=== PATIENT | female | born 1970 | race Caucasian/White ===

== ENCOUNTER 2019-09-27 20:05 | Emergency (ER) | payer MEDICARE, SELFPAY ==
--- NOTE | 2019-09-27 19:59 | ED.GENADUL_ITS ---
Discharge Plan Disposition Patient Disposition: HOME Condition: Good Discharge Details Chief Complaint: Vascular Clinical Impression: Contusion, Calf pain Primary Care Provider: Terrence Che ED Provider: Guero Blackwood Home Meds and New Rx's Prescriptions: New Xarelto 15 mg tablet 15 mg PO BID 7 Days Qty: 14 RF: 0 No Action atenolol 100 MG tablet 100 mg PO DAILY RF: 0 metoprolol succinate 50 mg Tablet Extended Release 24 Hr 50 mg PO BID RF: 0 levothyroxine 40 mcg/mL Solution 40 mcg PO DAILY RF: 0 lisinopril 40 MG tablet 40 mg PO DAILY RF: 0 naproxen [Naprosyn] 375 MG tablet 375 mg PO BID PRN (Reason: Pain) Qty: 28 RF: 0 Discharge Instructions Instructions: Contusion in Adults (ED), Leg Pain (ED) Additional Instructions: At this time I see no evidence of significant DVT, however this is not a definitive study and you do require a definitive ultrasound for full evaluation. I suspect your symptoms are secondary to being hit by your dog's tail and subsequent bleeding and bruising from that. At this time there is no evidence of abscess or infection. Please take a daily multivitamin, vitamin C supplement, and decrease your alcohol intake. Use warm compresses to the area to door liner helper in healing. Follow-up closely with your primary care doctor Dr. Che. We have discussed the risks and benefits of the blood thinning medication. There are significant risks to this medication, however as we discussed I will provide a prescription if you do change your mind. If you notice any worsening of your symptoms, or any new symptoms such as vomiting, diarrhea, fever, chills, shortness of breath, chest pain, numbness, weakness, or fainting , please return immediately to the emergency department for reevaluation. Please follow up with your primary care provider as soon as possible for reassessment and reevaluation. As always, it was a pleasure participating in your medical care today. Referrals: Terrence Che [Primary Care Provider] - Medical Decision Making This is a very pleasant 49-year-old female with no significant past medical history except for hypertension and some chronic alcoholism, who presents today for evaluation of bruising over the medial aspect of her left lower extremity. She believes that she was hit by her dog's tail when he was wa lking vigorously 2 to 3 days ago, and since then has had a mild bruise. Exam demonstrates no warmth, swelling, tenderness, or signs of abscess or other abnormality. Limited bedside ultrasound shows no evidence of DVT on evaluation of the vessels however this is performed at bedside by myself and not by standard digital assistant. Capillary refill is normal, sensation present throughout, no evidence of decrease in sensation or neurovascular compromise. Signs and symptoms at this time appear clinically consistent with a bruise/contusion, however due to the slight concern that there may have not potentially been a traumatic component the differential does include but is notably less likely for DVT. Although my ultrasound showed no abnormalities it is certainly limited, and I do recommend formal ultrasonography. Patient agrees with this and we will schedule outpatient ultrasound. We did discuss the risks and benefits of blood thinners, the patient does drink regularly, and sometimes does get imbalance and fall. With a long discussion about these risks and benefits at this time the patient would like to hold off on the blood thinners. We will give her a prescription if she does decide to change her mind, however we had a clear discussion about the risks and benefits of this. Recommended warm compresses, multivitamin, vitamin C, and close follow-up with her PCP. Discussed red flags which to return. I have extensively reviewed the treatment plan and discharge instructions with the patient. I have addressed all patient concerns at this time. The patient was made aware of what symptoms to monitor for that would warrant a return to the emergency department. Discussed the plan with the patient, they demonstrate verbal understanding and agreement with our assessment and plan at this time. HPI General Date/Time Provider Initiated Documentation: 09/27/19 20:26 . HPI Narrative: This is a 49-year-old female with a past medical history of hypertension, reactive airway disease/COPD, who presents today via EMS for evaluation of leg discoloration. The patient states that a day or 2 ago she thinks she may have been hit on the medial aspect of her left lower extremity by her dog hard tail when it was wagging vigorously. However she is not completely certain that this did occur. Since then she has noticed mild to moderate bruise that is grown in size on the medial aspect of her left lower extremity. She describes mild tenderness there, but denies any warmth, fever, chills, calf pain, pain with ambulation. Denies PE risk factors such as recent long car rides, immobilization, recent surgery, prior history of DVT or PE, family history of PE or DVT, morbid obesity, exogenous estrogen and smoking, hemoptysis, history of cancer. She denies any other complaints at this time. She denies any concerning red flags of chest pain or shortness of breath. Related Data Home Medications Medication Instructions Recorded Confirmed atenolol 100 mg PO DAILY 11/23/14 09/27/19 lisinopril 40 mg PO DAILY 01/31/18 09/27/19 naproxen [Naprosyn] 375 mg PO BID PRN #28 tab 01/31/18 levothyroxine 40 mcg PO DAILY 09/27/19 09/27/19 metoprolol succinate 50 mg PO BID 09/27/19 09/27/19 rivaroxaban [Xarelto] 15 mg PO BID 7 Days #14 tab 09/27/19 Previous Rx's Medication Instructions Recorded naproxen [Naprosyn] 375 mg PO BID PRN #28 tab 01/31/18 rivaroxaban [Xarelto] 15 mg PO BID 7 Days #14 tab 09/27/19 Allergies Allergy/AdvReac Type Severity Reaction Status Date / Time erythromycin base Allergy Intermediate Skin Rash Unverified 09/27/19 20:11 Review of Systems All systems reviewed & are unremarkable except as noted in HPI and below PFSH Social History Smoking/Tobacco Use Status: Current every day Tobacco Type: cigarettes Alcohol Intake: current Alcohol Intake frequency: 3 or more drinks per day Drug use: Never Substance use type: does not use Details: pt states she has been drinking heavily today/tonight. pt has etoh on breath, speech is clear, pt a/ox4 Do you feel safe at home: Yes Do you feel safe in your relationship?: Yes Exam Narrative Exam Narrative: 1.Const: Well-nourished, Well-developed, appearing stated age 2.Eyes: PERRL, no conjunctival injection, and symmetrical lids. 3.ENT: Atraumatic external nose and ears. Moist MM. Neck: Symmetric, trachea midline, No thyromegaly. 4.CVS: +S1/S2, No murmurs or gallops. Peripheral pulses 2+ and equal in all extremities. Brisk capillary refill in all extremities. 5.RESP: Unlabored respiratory effort. Clear to auscultation bilaterally. No wheezes rales or rhonchi 6.GI: Soft, Nontender/Nondistended, No hepatosplenomegaly. No guarding or rebound. 7.MSK: Normocephalic, Extremities w/o deformity or ttp No cyanosis or clubbing, Normal movement of all extremities. No calf tenderness. Capillary refill is 2 seconds in all toes, dorsalis pedis and posterior tibial pulses are present and +1 to +2 bilaterally. 8.Skin: Warm, Dry. Notable bruises present over the medial aspect of the left calf, no tenderness or fluctuance, bedside limited ultrasound shows no evidence of clot, or vascular abnormality. Good color flow. No fluctuance or abscess. No fluid collection. No evidence of significant trauma. 9.Neuro: machine quilt stuffer II-XII grossly intact. Sensation grossly intact, no focal neurologic deficits. 10.Psych: (AAO) x3. Appropriate mood and affect
[2019-09-27 20:06] VITALS: BP 137/79; PULSE 91; RESP 18; TEMP 36.5; O2SAT 98
== END 2019-09-27 20:50 | disposition home or self-care (01) ==
PROVIDERS: Emergency Provider Student in an Organized Health Care Education/Training Program; PCP Family Medicine
DX: S80.12XA Contusion of left lower leg, initial encounter (principal); W54.8XXA Other contact with dog, initial encounter; M79.662 Pain in left lower leg; F17.210 Nicotine dependence, cigarettes, uncomplicated; I10 Essential (primary) hypertension; J44.9 Chronic obstructive pulmonary disease, unspecified
CPT/HCPCS: 99283

== ENCOUNTER 2019-09-29 02:20 | Outpatient (CLI) | payer MEDICARE, SELFPAY ==
--- NOTE | 2019-09-29 13:00 | DI.US_ITS ---
EXAM: US LOWER EXTREMITY VENOUS LT US LOWER EXTREMITY VENOUS LT CLINICAL HISTORY: PAIN LT CALF, ? DVT. PAIN LT CALF, ? DVT TECHNIQUE: Lower extremity venous ultrasound performed using grayscale, color-flow, and spectral Dop pler analysis. COMPARISON: No exams were available for comparison FINDINGS: The common femoral, femoral and popliteal veins demonstrate normal compressibility, augmentation, and color Doppler. The posterior tibial veins are patent. The saphenous vein appears free of thrombus. No Rose's cyst or hematoma is seen. IMPRESSION: No evidence of DVT.
== END 2019-09-29 02:40 ==
PROVIDERS: PCP Family Medicine; Visit Provider Student in an Organized Health Care Education/Training Program
DX: M79.662 Pain in left lower leg (principal)
CPT/HCPCS: 93971

== ENCOUNTER 2019-09-29 13:38 | Emergency (ER) | payer MEDICARE, SELFPAY ==
[2019-09-29 13:46] VITALS: BP 161/78; PULSE 90; RESP 18; TEMP 36.9; O2SAT 98
--- NOTE | 2019-09-29 14:33 | ED.GENADUL_ITS ---
Discharge Plan Disposition Patient Disposition: HOME Condition: Good Discharge Details Chief Complaint: Recheck Clinical Impression: Follow-up exam Primary Care Provider: Terrence Che ED Provider: Marylu Huggins Home Meds and New Rx's Prescriptions: No Action metoprolol succinate 50 mg Tablet Extended Release 24 Hr 50 mg PO BID RF: 0 levothyroxine 40 mcg/mL Solution 40 mcg PO DAILY RF: 0 Xarelto 15 mg tablet 15 mg PO BID 7 Days Qty: 14 RF: 0 albuterol sulfate [ProAir HFA] 90 mcg/actuation Hfa Aerosol Inhaler INHALATION PRN PRNRF: 0 Symbicort 160-4.5 mcg/actuation Hfa Aerosol Inhaler INHALATION BID RF: 0 lisinopril 40 MG tablet 40 mg PO DAILY RF: 0 naproxen [Naprosyn] 375 MG tablet 375 mg PO BID PRN (Reason: Pain) Qty: 28 RF: 0 Discharge Instructions Additional Instructions: Observe for any redness, swelling or discomfort. Elevate leg if needed. Your ultrasound evaluation today is negative for DVT. Return for any worsening or concerns sooner if needed. Follow-up with primary care doctor. Medical Decision Making Patient's ultrasound today does not reveal any evidence of acute DVT or superficial clot. No associated hematoma. Smoking cessation discussed at length due to vascular risk. Patient reports understanding. Patient encouraged close follow-up with primary care doctor. The patient was stable and requested discharge. Prior to discharge, my usual and customary return precautions were reviewed with the patient - this included follow-up instructions and reasons to return to the Emergency Department if conditions worsens, does not improve as expected, or other new concerns arise. HPI General Date/Time Provider Initiated Documentation: 09/29/19 14:23 . HPI Narrative: This is a 49-year-old patient who presents to the ER for a follow-up. Patient is following up on an ultrasound that was performed today after her evaluation in the emergency room over the weekend for complaints of distal leg bruising. Ultrasound unavailable at the time of her initial evaluation and was ordered as an outpatient for today. Patient has no new complaints of pain. Patient has no complaints of distal leg pain primarily an area of skin discoloration noted to the medial aspect of the distal left leg specifically was for concern of hematoma. Patient denies any chest pain, difficulty no shortness of breath or wheezing. Has no other concerns or complaints at this time. Patient is only seeking her ultrasound results today Related Data Home Medications Medication Instructions Recorded Confirmed lisinopril 40 mg PO DAILY 01/31/18 09/29/19 naproxen [Naprosyn] 375 mg PO BID PRN #28 tab 01/31/18 09/29/19 levothyroxine 40 mcg PO DAILY 09/27/19 09/29/19 metoprolol succinate 50 mg PO BID 09/27/19 09/29/19 rivaroxaban [Xarelto] 15 mg PO BID 7 Days #14 tab 09/27/19 09/29/19 albuterol sulfate [ProAir HFA] INHALATION PRN PRN 09/29/19 budesonide-formoterol [Symbicort] INHALATION BID 09/29/19 Previous Rx's Medication Instructions Recorded naproxen [Naprosyn] 375 mg PO BID PRN #28 tab 01/31/18 rivaroxaban [Xarelto] 15 mg PO BID 7 Days #14 tab 09/27/19 Allergies Allergy/AdvReac Type Severity Reaction Status Date / Time erythromycin base Allergy Intermediate Skin Rash Unverified 09/27/19 20:11 General Stated Complaint: Recheck BARTOLOME: 4 Review of Systems All systems reviewed & are unremarkable except as noted in HPI and below Cardiovascular Cardiovascular: Denies dyspnea Respiratory Respiratory: Denies dyspnea Integumentary/Breasts Skin/Breast: Reports unusual bruising and Denies wounds [facility] Social History Smoking/Tobacco Use Status: Current every day Tobacco Type: cigarettes Alcohol Intake: current Alcohol Intake frequency: 3 or more drinks per day Drug use: Never Substance use type: does not use Details: pt states she has been drinking heavily today/tonight. pt has etoh on breath, speech is clear, pt a/ox4 Do you feel safe at home: Yes Do you feel safe in your relationship?: Yes Exam Narrative Exam Narrative: CONST: Healthy appearing patient, in no acute distress. Well hydrated. Alert and alert. MUSCULOSKELETAL: Using a crutch for ambulation due to right hip pain. Assisted gait. FROM of all extremities. Patient with an area of purple discoloration noted to the medial aspect of the distal left lower leg. No open wounds. Patient has pulses intact distally. Noted chronic vascular changes. SKIN: Normal. Dry. No rashes. NEURO: Alert and awake. Speech clear. PSYCH: Normal affect. Cooperative. Course Vital Signs Vital signs: Vital Signs Temperature 36.9 C 09/29/19 13:46 Pulse 90 09/29/19 13:46 Respiratory Rate 18 09/29/19 13:46 Blood Pressure 161/78 H 09/29/19 13:46 Pulse Oximetry 98 09/29/19 13:46 Temperature 36.9 C 09/29/19 13:46 Temperature Source Temporal Artery Scan 09/29/19 13:46 Pulse 90 09/29/19 13:46 Respiratory Rate 18 09/29/19 13:46 Respiratory Effort 09/29/19 13:51 Blood Pressure 161/78 H 09/29/19 13:46 Blood Pressure Position Supine 09/29/19 13:46 Pulse Oximetry 98 09/29/19 13:46 Oxygen Delivery Method Room Air 09/29/19 13:46 Oxygen Flow Rate 0 09/29/19 13:46 Pain Level 0 09/29/19 13:46
== END 2019-09-29 14:33 | disposition home or self-care (01) ==
PROVIDERS: Emergency Provider Physician Assistant; PCP Family Medicine
DX: S80.12XA Contusion of left lower leg, initial encounter (principal); X58.XXXA Exposure to other specified factors, initial encounter; F17.210 Nicotine dependence, cigarettes, uncomplicated

== ENCOUNTER 2020-08-26 02:17 | Outpatient (CLI) | payer MEDICARE, SELFPAY ==
--- NOTE | 2020-08-26 13:00 | DI.DEXA_ITS ---
EXAM: XR DEXA BONE DENSITY W/WO HELEN CLINICAL HISTORY: OSTEOPENIA WITH HIGH FX RISK,M85.861,HIP FX TECHNIQUE: [employer] Horizon C densitometer. COMPARISON: DX DEXA BONE DENSITY WITH HELEN from 11/12/2014 FINDINGS: The lateral tin recovery worker view the spine shows slight anterior wedging of the T7 and T11 vertebral bodies. The bone mineral density measurements of the lumbar spine correspond to a total T-score of -3.2, in t he osteoporotic range. The bone mineral density of the spine has decreased 12.4 percent compared wit h 2014. The hip was not analyzed. Bone mineral density measurements of the left forearm correspond to a T-score of the distal 3rd of 0. 6, in the normal range. The bone density has decreased 7.5 percent when compared with 2014. IMPRESSION: Osteoporosis of the lumbar spine. Normal bone mineral density of the forearm. Bone density measurem ents show significant decrease when compared with the previous exam. Question of mild thoracic compr ession fractures.
== END 2020-08-26 02:37 ==
PROVIDERS: PCP Family Medicine; Visit Provider Family Medicine
DX: M85.861 Other specified disorders of bone density and structure, right lower leg (principal); M81.8 Other osteoporosis without current pathological fracture
CPT/HCPCS: 77080

== ENCOUNTER 2022-04-10 09:46 | Day surgery (SDC) | payer MEDICARE, SELFPAY ==
--- NOTE | 2022-04-10 07:54 | ANES.PREOP_ITS ---
General Info Date of Service Date Performed: 04/10/22 Height: 5 ft 7 in Weight: 58.06 kg Body Mass Index (BMI): 20.0 Surgical Procedure: Operation Date: 04/10/22 12:40 Proposed Procedure Side Surgeon p Cataract Extraction with IOL Implant Right Óscar Corral MD Meds Allergies and Home Medications Allergies Allergy/AdvReac Type Severity Reaction Status Date / Time erythromycin base Allergy Intermediate Skin Rash Verified 04/10/22 10:19 Home Medication Medication Instructions Recorded lisinopril 40 mg tablet 40 mg PO DAILY 01/31/18 naproxen 375 mg tablet (Naprosyn) 375 mg PO BID PRN Pain #28 tabs 01/31/18 metoprolol succinate 50 mg 50 mg PO BID 09/27/19 tablet,extended release 24 hr albuterol sulfate 2.5 mg/3 mL 2.5 ml inhalation Q3H PRN 04/06/22 (0.083 %) solution for nebulization atorvastatin 20 mg tablet 1 tab PO DAILY 04/06/22 budesonide-formoterol HFA 160 2 puff inhalation BID 04/06/22 mcg-4.5 mcg/actuation aerosol inhaler fluticasone propionate 50 2 spray intranasal DAILY 04/06/22 mcg/actuation nasal spray,suspension ketoconazole 2 % topical cream 1 applic topical BID 04/06/22 levothyroxine 75 mcg tablet 1 tab PO DAILY 04/06/22 methocarbamol 500 mg tablet 2 tab PO QID 04/06/22 oxycodone 5 mg tablet 1 tab PO Q4H PRN 04/06/22 urea 20 % topical cream 1 applic topical HS 04/06/22 Current Visit Medications: Current Medications Generic Name Dose Route Start Last Admin Trade Name Freq PRN Reason Stop Dose Admin Acetaminophen 1,000 mg 04/10/22 06:00 Acetaminophen 500 Mg Tab PO 04/10/22 16:00 Q4H PRN PRN Miscellaneous Medication 0 ml 04/10/22 06:00 Prednisolone 1%, Moxifloxacin 0.5%, Nepafenac 0.1% 5ml Btl OD 04/10/22 16:00 DIRECTED [facility] Miscellaneous Medication 0 ml 04/10/22 06:00 Tropicam./Phenyleph. (1/2.5%) 5 Ml Btl OD 04/10/22 16:00 DIRECTED [facility] Tetracaine HCl 0 ml 04/10/22 06:00 Tetracaine 0.5% 4 Ml Btl OD 04/10/22 16:00 DIRECTED [facility] Medical History Medical History (Updated 04/10/22 @ 10:21 by Óscar Corral MD) Acrocyanosis Acute ankle pain Cerebral arteriovenous malformation Closed intertrochanteric fracture of femur Congenital arteriovenous malformation COPD (chronic obstructive pulmonary disease) Eczema Essential hypertension Hx of falling Hypo-osmolality and hyponatremia Hypothyroidism Osteoarthritis Osteopenia Osteoporosis Pain, joint, shoulder, right Pharyngeal candidiasis PVD (peripheral vascular disease) Right foot drop Right hemiparesis utilizes a walker to ambulate Right knee pain Seasonal allergic rhinitis Stasis dermatitis Tinea corporis Tobacco user Venous stasis ulcer Surgical History Surgical History History of hip replacement Hx of biopsy Tobacco Smoking/Tobacco Use Status: Current every day Tobacco Type: cigarettes Alcohol Alcohol Intake: current Alcohol intake frequency: 3 or more drinks per day Substance Use Substance use: Occasionally Substance use type: marijuana Vital Signs and Lab Results Vital Signs Most Recent Vital Signs in EMR: Temp Pulse Resp BP Pulse Ox 36.0 C L 84 18 105/80 100 04/10/22 10:05 04/10/22 10:05 04/10/22 10:05 04/10/22 10:05 04/10/22 10:05 Lab Results Blood Type / Crossmatch: No Data to Display Complete Blood Count: No Data to Display Complete Metabolic Panel: No Data to Display Liver Function Panel: No Data to Display Coagulation Panel: No Data to Display Cardiac Panel: No Data to Display Arterial Blood Gas: No Data to Display Venous Blood Gas: No Data to Display Pancreas Panel: No Data to Display Thyroid Panel: No Data to Display Infectious Disease: No Data to Display Blood Cultures: No Data to Display Toxicology Panel: No Data to Display Panel: No Data to Display Anesthesia Assessment and Plan Anesthesia History Personal History: No History of Anesthesia Complications Family History: No Family History of Anesthesia Complications Exercise Tolerance Exercise Tolerance: Metabolic Equivalents>4 Pertinent Negatives Pertinent Negatives: No Symptoms of GERD, No Major Pulmonary Symptoms or Complaints and No History of CVA/TIA Cardiac & Pulmonary Exam Cardiac Exam: Normal S1/S2 Heart Sounds Pulmonary Exam: Clear Bilateral Breath Sounds Implantable Cardiac Device Does patient have a Pacemaker or an ICD?: No Airway Exam Known Difficult Airway: No Mallampati Class: 2 Mouth Opening: Normal (> 3cm) Thyromental Distance: Greater than 3 cm Neck Range of Motion: Full ROM Neck Circumference: Normal Teeth Condition: Normal Dentition ASA Classification ASA Score: ASA 3 Emergency Case?: No NPO Status NPO Status: NPO Clears >2 hours, Solids >8 hours Status Status: Not Relevant due to Medical History Anesthesia Plan Resuscitation Status: Full Code Anesthesia Technique: MAC Anesthesia Airway Planned: Natural Airway Monitors Used: Standard Monitors
[2022-04-10 10:05] VITALS: BP 105/80; PULSE 84; RESP 18; TEMP 36; O2SAT 100
[2022-04-10] MEDS: Tropicam./Phenyleph. (1/2.5%) 5 ML BTL OD ×3 (10:21→10:37)
[2022-04-10] MEDS: Tetracaine 0.5% 4 ML BTL OD (11:05)
[2022-04-10] MEDS: Lidocaine 2% Jelly 6 ML SYR (11:05)
[2022-04-10] MEDS: Trypan Blue 0.06% 0.5 ML SYR (11:17)
[2022-04-10] MEDS: Balanced Salt Soln.-PLUS 500 ML BAG (11:18)
[2022-04-10] MEDS: Duovisc Viscoelastic System EACH 1 EACH (11:18)
[2022-04-10] MEDS: Povidone-Iodine Ophth 30 ML BTL (11:19)
[2022-04-10 11:35] VITALS: BP 109/76; PULSE 80; RESP 18; TEMP 36.2; O2SAT 99
--- NOTE | 2022-04-10 11:37 | W.PM.DSUDISC ---
Discharge Plan Disposition Patient Disposition: HOME Condition: Good Discharge Details Attending Provider: Óscar Corarl Primary Care Provider: Terrence Che Home Meds and New Rx's Prescriptions: No Action metoprolol succinate 50 mg Tablet Extended Release 24 Hr 50 mg PO BID lisinopril 40 MG tablet 40 mg PO DAILY naproxen [Naprosyn] 375 MG tablet 375 mg PO BID PRN (Reason: Pain) Qty: 28 0RF methocarbamol 500 mg tablet 2 tab PO QID Label Comments: TAKE TWO TABLETS BY MOUTH FOUR TIMES A DAY FOR 14 DAYS NEEDED FOR SPASM atorvastatin 20 mg tablet 1 tab PO DAILY Label Comments: TAKE ONE TABLET BY MOUTH EVERY DAY albuterol sulfate 2.5 mg /3 mL (0.083 %) solution for nebulization 2.5 ml inhalation Q3H PRN Label Comments: INHALE CONTENTS OF 1 VIAL IN NEBULIZER EVERY 3 HOURS urea 20 % cream 1 applic TOPICAL HS Label Comments: APPLY TO AFFECTED AREA AT BEDTIME levothyroxine 75 mcg tablet 1 tab PO DAILY Label Comments: TAKE ONE TABLET BY MOUTH EVERY DAY ketoconazole 2 % cream 1 applic TOPICAL BID Label Comments: APPLY TOPICALLY TO THE AFFECTED AREA TWICE DAILY FOR 2 WEEKS NEEDED fluticasone propionate 50 mcg/actuation [place],Suspension 2 spray INTRANASAL DAILY oxycodone 5 mg tablet 1 tab PO Q4H PRN Label Comments: TAKE 1 TABLET BY MOUTH EVERY 4 HOURS FOR 7 DAYS DIRECTED budesonide-formoterol 160-4.5 mcg/actuation HFA aerosol inhaler 2 puff inhalation BID Label Comments: INHALE TWO PUFFS BY MOUTH TWICE A DAY DIRECTED Discharge Instructions Stand Alone Forms: Post-op Topical Cataract, Mahesh Poole (DSU) Discharge Orders Discharge Orders: Discharge Order (Routine); Ordered 04/10/22 Ordered By: Óscar Corral DS: Diagnosis Discharge Diagnosis (1) Posterior subcapsular age-related cataract, right eye: Status: Resolved (2) Nuclear sclerotic cataract of right eye: Status: Resolved
--- NOTE | 2022-04-10 11:38 | W.PM.OP ---
Date of service: 04/10/22 Time of Service: 10:38 Operative Note Operative Note DATE OF PROCEDURE: 04/10/22 PRE-OP DIAGNOSIS: Dense nuclear/posterior subcapsular cataract, right eye Poor red reflex, right eye secondary to cataract POST-OP DIAGNOSIS: same PROCEDURE: Cataract extraction using phacoemulsification with intraocular lens implantation, right eye, using capsular staining with Vision Blue SURGEON: Óscar Corral ANESTHESIA TYPE: Local By Surgeon and MAC Refer to Anesthesia Record PATHOLOGY: none sent COMPLICATIONS: None Patient was transported to: same day Patient's condition: stable Implants: Asael and Asael / [employer] Optics Tecnis [id number] Indications: Progressive visual loss due to cataract, right eye Procedure Description: CATARACT SURGERY OPERATIVE REPORT PREOPERATIVE DIAGNOSIS: 1. Nuclear/posterior subcapsular cataract, right eye 2. Poor red reflex secondary to #1 POSTOPERATIVE DIAGNOSIS: Same OPERATION: 1. Cataract extraction using phacoemulsification with posterior chamber intraocular lens implant, right eye. 2. Capsular staining with Vision Blue IOL: IOL Boiler Tenders Supervisor/Model: Asael & Asael / UMER Tecnis [id number] IOL Power: + 24.5 diopters IOL Serial Number: [id number] Optic Diameter: 6.0mm Haptic/Overall Diameter: 13.0mm PHACO INFO: [employer] Vision System with OZil and Active Fluidics Cumulative Dispersed Energy (CDE): 9.65 seconds SURGEON: Óscar Corral MD, FELICE ANESTHESIA: Monitored Anesthesia Care (MAC), with local sub-tenon's anesthetic infiltration COMPLICATIONS: None SPECIMENS: None INDICATIONS FOR PROCEDURE: The patient is a 52-year-old lady with history of diminished visual acuity in her right eye secondary to the development of significant nuclear/posterior subcapsular cataract. The option of cataract surgery was offered to the patient and she wished to proceed. PROCEDURE: The correct surgical eye was identified and marked as the right eye and the pupil was dilated in the preoperative area using mydriatics and cycloplegics. The dilated pupil size was 4.5 mm. Oral sedation was administered in the form of an Imprimis MKO Melt (midazolam 3mg/ketamine 25mg/ondansetron 2mg). The patient was brought to the operating room where cardiopulmonary monitoring was instituted and surgical time-out was performed, confirming the correct operative eye and IOL power. Topical anesthesia was administered and ophthalmic povidone-iodine 5% was instilled into the conjunctival fornices. Lidocaine gel was applied to the cornea and the delaney-ocular area was prepped with Betadine 10% solution and draped in the usual sterile fashion for intraocular surgery, including an aperture drape. A Tegaderm transparent film dressing was cut in half and used to cover the lashes and lid margins. Care was taken to sequester the lashes and lid margins under the Tegaderm dressing. A lid speculum was placed between the lids of the operative eye and the [employer] LuxOR Revalia operating microscope was maneuvered into position. Christina scissors were then used to make a conjunctival buttonhole approximately 6mm posterior to the limbus in the inferonasal quadrant. Blunt dissection was carried out to expose bare sclera, and a blunt-tipped sub-tenon?s anesthesia cannula was introduced and passed posteriorly along the globe where non-preserved plain lidocaine was injected into posterior sub-Tenon?s space. A sideport knife was used to make a paracentesis port inferotemporally. Intraocular phenylephrine/lidocaine was injected into the anterior chamber. Air was injected into the anterior chamber, followed by Vision Blue, which was painted over the anterior capsule and then irrigated out with BSS. The anterior chamber was filled with viscoelastic. Some Visco dilation was achieved, enlarging the pupil to 5.5 mm. 2.4 mm keratome knife was used to create a 2-plane near clear corneal tunnel extending approximately 2 mm into clear cornea superior temporally.. A flap was raised on the anterior capsule and capsulorhexis forceps were used to complete a continuous curvilinear capsulorhexis of 5.0 mm. Balanced salt solution was then used to perform cortical cleaving hydrodissection and nuclear hydrodelineation until the lens could be freely rotated within the capsular bag. The lens nucleus was then disassembled and removed within the capsular bag and iris plane using phacoemulsification. Residual cortical material was removed using the I/A handpiece. The posterior capsule was carefully polished to remove as much residual lens epithelial cells as safely possible. The capsular bag was then inflated and the anterior chamber deepened with viscoelastic. The lens implant described above was inserted into the capsular bag using the UMER [place] Injector. A Kuglen hook was used to dial the IOL into position. Residual viscoelastic was then removed first from posterior to the IOL, then from the anterior chamber using the I/A handpiece. The lens implant was noted to center nicely within the capsular bag. The incisions were stromally hydrated, and the anterior chamber was reformed using BSS. Then 0.5cc of moxifloxacin 1.0mg/ml were injected into the capsular bag and anterior chamber. The incisions were checked with a Weck spear and found to be secure. Several drops of ophthalmic povidone-iodine 5% were then applied to the eye followed by two drops of Imprimis combination prednisolone/moxifloxacin/nepafenac solution. The drapes were removed and a clear plastic protective eye shield was placed over the eye. The patient was then returned to Same Day Surgery in stable condition.
[2022-04-10 12:03] VITALS: BP 104/63; PULSE 82; RESP 16; TEMP 36.7; O2SAT 97
--- NOTE | 2022-04-10 12:41 | W.ANESPOSTOP ---
Postoperative Evaluation Date, Time and Location Date Performed: 04/10/22 Time Performed: 12:42 Patient Location: Day Surgery Unit Vital Signs Most Recent Imported Vital Signs: Most Recent Vital Signs Temp Pulse Resp BP Pulse Ox 36.7 C 82 16 104/63 97 04/10/22 12:03 04/10/22 12:03 04/10/22 12:03 04/10/22 12:03 04/10/22 12:03 Pain Score Most Recent Pain Score: Most Recent Pain Score Pain Level 0 04/10/22 12:03 Assessment Mental Status: Awake (Alert & Oriented to Patient Baseline) Airway and Respiratory Function: Patent airway with normal (patient baseline) respiratory exam Cardiovascular Function: Hemodynamically Stable Hydration Status: Adequately Hydrated Nausea & Vomiting: No Nausea or Vomiting Pain: Pt. Denies Any Pain Peripheral Nerve Block: Other (Local by Dr. Corral) Postoperative Comments:: Patient seen earlier today in [facility].
== END 2022-04-10 12:14 | disposition home or self-care (01) ==
PROVIDERS: PCP Family Medicine; Visit Provider Ophthalmology
PROC: (CPT 66984; principal; 2022-04-10 12:30)
DX: H25.041 Posterior subcapsular polar age-related cataract, right eye (principal); J44.9 Chronic obstructive pulmonary disease, unspecified; I10 Essential (primary) hypertension; F17.210 Nicotine dependence, cigarettes, uncomplicated
CPT/HCPCS: 66984; V2632

== ENCOUNTER 2022-05-01 09:37 | Day surgery (SDC) | payer MEDICARE, SELFPAY ==
--- NOTE | 2022-05-01 08:52 | W.PREOPHP ---
Assessment and Plan Assessment and plan (1) Nuclear sclerotic cataract of left eye: Status: Chronic Assessment and plan: Assessment: Visually significant cataract of the left eye. Plan: Cataract extraction with lens implantation of the left eye (2) Posterior subcapsular age-related cataract of left eye: Status: Chronic Assessment and plan: ssment: Visually significant cataract of the left eye. Plan: Cataract extraction with lens implantation of the left eye History of Present Illness History of Present Illness Chief Complaint: Progressive decreased vision, left eye Narrative: The patient is a 52-year-old lady with history of significant bilateral cataracts, right eye worse than left. She underwent cataract surgery on 04/10/2022. Postoperatively she had fairly significant corneal edema for 2 weeks which has since resolved. She now presents for cataract surgery to remove a dense cataract in her left eye. PFSH All Active Problems Posterior subcapsular age-related cataract of left eye (Chronic) Nuclear sclerotic cataract of left eye (Chronic) Medical History Acrocyanosis Acute ankle pain Cerebral arteriovenous malformation Closed intertrochanteric fracture of femur Congenital arteriovenous malformation COPD (chronic obstructive pulmonary disease) Eczema Essential hypertension Hx of falling Hypo-osmolality and hyponatremia Hypothyroidism Osteoarthritis Osteopenia Osteoporosis Pain, joint, shoulder, right Pharyngeal candidiasis PVD (peripheral vascular disease) Right foot drop Right hemiparesis utilizes a walker to ambulate Right knee pain Seasonal allergic rhinitis Stasis dermatitis Tinea corporis Tobacco user Venous stasis ulcer Surgical History History of hip replacement Hx of biopsy Social History Smoking/Tobacco Use Status: Current every day Tobacco Type: cigarettes Smoking risk assessment performed?: Yes Alcohol Intake: current Alcohol Intake frequency: 3 or more drinks per day Drug use: Occasionally Substance use type: marijuana Details: had vape pen yesterday 05/01/22 Do you feel safe at home: Yes Do you feel safe in your relationship?: Yes Meds Allergies and Home Medications Allergies Allergy/AdvReac Type Severity Reaction Status Date / Time erythromycin base Allergy Intermediate Skin Rash Verified 05/01/22 10:05 Home Medications Medication Instructions Recorded Confirmed Type lisinopril 40 mg tablet 40 mg PO DAILY 01/31/18 05/01/22 History naproxen 375 mg tablet (Naprosyn) 375 mg PO BID PRN Pain #28 tabs 01/31/18 04/28/22 Rx metoprolol succinate 50 mg 50 mg PO BID 09/27/19 05/01/22 History tablet,extended release 24 hr albuterol sulfate 2.5 mg/3 mL 2.5 ml inhalation Q3H PRN 04/06/22 04/28/22 History (0.083 %) solution for nebulization atorvastatin 20 mg tablet 1 tab PO DAILY 04/06/22 05/01/22 History budesonide-formoterol HFA 160 2 puff inhalation BID 04/06/22 05/01/22 History mcg-4.5 mcg/actuation aerosol inhaler fluticasone propionate 50 2 spray intranasal DAILY 04/06/22 04/28/22 History mcg/actuation nasal spray,suspension ketoconazole 2 % topical cream 1 applic topical BID 04/06/22 04/28/22 History levothyroxine 75 mcg tablet 1 tab PO DAILY 04/06/22 05/01/22 History methocarbamol 500 mg tablet 2 tab PO QID 04/06/22 04/28/22 History oxycodone 5 mg tablet 1 tab PO Q4H PRN 04/06/22 04/28/22 History urea 20 % topical cream 1 applic topical HS 04/06/22 04/28/22 History Exam Eyes Other: Uncorrected visual acuity is 20/20 in the right eye. Corrected visual acuity is 20/30 in the left eye. Intraocular pressure is 15 OD, 17 OS. Extraocular motility is normal. Slit-lamp examination reveals a well-positioned PCIOL in the right eye with clear posterior capsule. Cornea is now clear with small area of slight thickening just inferior nasal to the visual axis. In the left eye there is a moderate nuclear and mild posterior subcapsular cataract. Funduscopic examination reveals disc cupping of 0.4 OU with normal vessels, macula, peripheral retina and vitreous. Cardio Rate: regular rate Rhythm: regular rhythm
[2022-05-01] MEDS: Tropicam./Phenyleph. (1/2.5%) 5 ML BTL OS ×3 (10:13→10:24)
[2022-05-01 10:14] VITALS: BP 128/78; PULSE 87; RESP 16; TEMP 36.5; O2SAT 98
--- NOTE | 2022-05-01 10:49 | ANES.PREOP_ITS ---
General Info Date of Service Date Performed: 05/01/22 Height: 5 ft 7 in Weight: 53.3 kg Body Mass Index (BMI): 18.3 Surgical Procedure: Operation Date: 05/01/22 12:40 Proposed Procedure Side Surgeon p Cataract Extraction with IOL Implant Left Óscar Corral MD Meds Allergies and Home Medications Allergies Allergy/AdvReac Type Severity Reaction Status Date / Time erythromycin base Allergy Intermediate Skin Rash Verified 05/01/22 10:05 Home Medication Medication Instructions Recorded lisinopril 40 mg tablet 40 mg PO DAILY 01/31/18 naproxen 375 mg tablet (Naprosyn) 375 mg PO BID PRN Pain #28 tabs 01/31/18 metoprolol succinate 50 mg 50 mg PO BID 09/27/19 tablet,extended release 24 hr albuterol sulfate 2.5 mg/3 mL 2.5 ml inhalation Q3H PRN 04/06/22 (0.083 %) solution for nebulization atorvastatin 20 mg tablet 1 tab PO DAILY 04/06/22 budesonide-formoterol HFA 160 2 puff inhalation BID 04/06/22 mcg-4.5 mcg/actuation aerosol inhaler fluticasone propionate 50 2 spray intranasal DAILY 04/06/22 mcg/actuation nasal spray,suspension ketoconazole 2 % topical cream 1 applic topical BID 04/06/22 levothyroxine 75 mcg tablet 1 tab PO DAILY 04/06/22 methocarbamol 500 mg tablet 2 tab PO QID 04/06/22 oxycodone 5 mg tablet 1 tab PO Q4H PRN 04/06/22 urea 20 % topical cream 1 applic topical HS 04/06/22 Current Visit Medications: Current Medications Generic Name Dose Route Start Last Admin Trade Name Freq PRN Reason Stop Dose Admin Acetaminophen 1,000 mg 05/01/22 06:00 Acetaminophen 500 Mg Tab PO Q4H PRN PRN Miscellaneous Medication 0 ml 05/01/22 06:00 Prednisolone 1%, Moxifloxacin 0.5%, Nepafenac 0.1% 5ml Btl OS DIRECTED [facility] Miscellaneous Medication 0 ml 05/01/22 06:00 05/01/22 10:24 Tropicam./Phenyleph. (1/2.5%) 5 Ml Btl OS 1 drp DIRECTED [facility] Administration Tetracaine HCl 0 ml 05/01/22 06:00 Tetracaine 0.5% 4 Ml Btl OS DIRECTED [facility] PFS Active Problems Active Problems: Problem Status Onset Code Posterior subcapsular age-related cataract of left eye H25.042 Nuclear sclerotic cataract of left eye H25.12 Posterior subcapsular age-related cataract, right eye H25.041 Nuclear sclerotic cataract of right eye H25.11 Medical History Medical History Acrocyanosis Acute ankle pain Cerebral arteriovenous malformation Closed intertrochanteric fracture of femur Congenital arteriovenous malformation COPD (chronic obstructive pulmonary disease) Eczema Essential hypertension Hx of falling Hypo-osmolality and hyponatremia Hypothyroidism Osteoarthritis Osteopenia Osteoporosis Pain, joint, shoulder, right Pharyngeal candidiasis PVD (peripheral vascular disease) Right foot drop Right hemiparesis utilizes a walker to ambulate Right knee pain Seasonal allergic rhinitis Stasis dermatitis Tinea corporis Tobacco user Venous stasis ulcer Medical History Comments:: had vape pen yesterday 05/01/22 Surgical History Surgical History History of hip replacement Hx of biopsy Tobacco Smoking/Tobacco Use Status: Current every day Tobacco Type: cigarettes Alcohol Alcohol Intake: current Alcohol intake frequency: 3 or more drinks per day Substance Use Substance use: Occasionally Substance use type: marijuana Details: had vape pen yesterday 05/01/22 Vital Signs and Lab Results Vital Signs Most Recent Vital Signs in EMR: Most Recent Vital Signs Temp Pulse Resp BP Pulse Ox 36.5 C 87 16 128/78 98 05/01/22 10:14 05/01/22 10:14 05/01/22 10:14 05/01/22 10:14 05/01/22 10:14 Lab Results Blood Type / Crossmatch: No Data to Display Complete Blood Count: No Data to Display Complete Metabolic Panel: No Data to Display Liver Function Panel: No Data to Display Coagulation Panel: No Data to Display Cardiac Panel: No Data to Display Arterial Blood Gas: No Data to Display Venous Blood Gas: No Data to Display Pancreas Panel: No Data to Display Thyroid Panel: No Data to Display Infectious Disease: No Data to Display Blood Cultures: No Data to Display Toxicology Panel: No Data to Display Panel: No Data to Display Anesthesia Assessment and Plan Anesthesia History Personal History: No History of Anesthesia Complications Family History: No Family History of Anesthesia Complications Exercise Tolerance Exercise Tolerance: Metabolic Equivalents>4 Cardiac & Pulmonary Exam Cardiac Exam: Normal S1/S2 Heart Sounds Pulmonary Exam: Clear Bilateral Breath Sounds Implantable Cardiac Device Does patient have a Pacemaker or an ICD?: No Airway Exam Known Difficult Airway: No Mallampati Class: 2 Mouth Opening: Normal (> 3cm) Thyromental Distance: Greater than 3 cm Neck Range of Motion: Full ROM Neck Circumference: Normal Teeth Condition: Normal Dentition ASA Classification ASA Score: ASA 3 Emergency Case?: No NPO Status NPO Status: NPO Clears >2 hours, Solids >8 hours Status Status: Not Relevant due to Medical History Anesthesia Plan Resuscitation Status: Full Code Anesthesia Technique: MAC Anesthesia Airway Planned: Natural Airway Monitors Used: Standard Monitors
[2022-05-01 11:06] VITALS: BMI 18.3
[2022-05-01] MEDS: Tetracaine 0.5% 4 ML BTL OS (11:18)
[2022-05-01] MEDS: Balanced Salt Soln.-PLUS 500 ML BAG (11:29)
[2022-05-01] MEDS: Duovisc Viscoelastic System EACH 1 EACH (11:30)
[2022-05-01] MEDS: Lidocaine 2% Jelly 6 ML SYR (11:30)
[2022-05-01] MEDS: Povidone-Iodine Ophth 30 ML BTL (11:31)
[2022-05-01] MEDS: Trypan Blue 0.06% 0.5 ML SYR (11:32)
[2022-05-01 11:58] VITALS: BP 118/75; PULSE 73; RESP 14; TEMP 36.2; O2SAT 95
--- NOTE | 2022-05-01 12:00 | W.PM.DSUDISC ---
Discharge Plan Disposition Patient Disposition: HOME Condition: Good Discharge Details Attending Provider: Óscar Corral Primary Care Provider: Terrence Che Home Meds and New Rx's Prescriptions: No Action metoprolol succinate 50 mg Tablet Extended Release 24 Hr 50 mg PO BID lisinopril 40 MG tablet 40 mg PO DAILY naproxen [Naprosyn] 375 MG tablet 375 mg PO BID PRN (Reason: Pain) Qty: 28 0RF methocarbamol 500 mg tablet 2 tab PO QID Label Comments: TAKE TWO TABLETS BY MOUTH FOUR TIMES A DAY FOR 14 DAYS NEEDED FOR SPASM atorvastatin 20 mg tablet 1 tab PO DAILY Label Comments: TAKE ONE TABLET BY MOUTH EVERY DAY albuterol sulfate 2.5 mg /3 mL (0.083 %) solution for nebulization 2.5 ml inhalation Q3H PRN Label Comments: INHALE CONTENTS OF 1 VIAL IN NEBULIZER EVERY 3 HOURS urea 20 % cream 1 applic TOPICAL HS Label Comments: APPLY TO AFFECTED AREA AT BEDTIME levothyroxine 75 mcg tablet 1 tab PO DAILY Label Comments: TAKE ONE TABLET BY MOUTH EVERY DAY ketoconazole 2 % cream 1 applic TOPICAL BID Label Comments: APPLY TOPICALLY TO THE AFFECTED AREA TWICE DAILY FOR 2 WEEKS NEEDED fluticasone propionate 50 mcg/actuation [place],Suspension 2 spray INTRANASAL DAILY oxycodone 5 mg tablet 1 tab PO Q4H PRN Label Comments: TAKE 1 TABLET BY MOUTH EVERY 4 HOURS FOR 7 DAYS DIRECTED budesonide-formoterol 160-4.5 mcg/actuation HFA aerosol inhaler 2 puff inhalation BID Label Comments: INHALE TWO PUFFS BY MOUTH TWICE A DAY DIRECTED Discharge Instructions Stand Alone Forms: Post-op Topical Cataract, Mahesh Poole ([facility]) Discharge Orders Discharge Orders: Discharge Order (Routine); Ordered 05/01/22 Ordered By: Óscar Corral DS: Diagnosis Discharge Diagnosis (1) Nuclear sclerotic cataract of left eye: Status: Resolved (2) Posterior subcapsular age-related cataract of left eye: Status: Resolved
--- NOTE | 2022-05-01 12:00 | W.PM.OP ---
Date of service: 05/01/22 Time of Service: 12:00 Operative Note Operative Note DATE OF PROCEDURE: 05/01/22 PRE-OP DIAGNOSIS: Dense nuclear/cortical cataract, left eye Poor red reflex, left eye secondary to cataract POST-OP DIAGNOSIS: same PROCEDURE: Cataract extraction using phacoemulsification with intraocular lens implant, left eye, using capsular staining with Vision Blue SURGEON: Óscar Corral ANESTHESIA TYPE: Local By Surgeon and MAC Refer to Anesthesia Record COMPLICATIONS: None Patient was transported to: same day Patient's condition: stable Implants: Asael and Asael / [employer] Opt[employer] Tecnis [id number] Indications: Progressive decreased vision due to cataract, left eye, with poor red reflex Procedure Description: CATARACT SURGERY OPERATIVE REPORT PREOPERATIVE DIAGNOSIS: 1. Dense nuclear/cortical cataract, left eye 2. Poor red reflex secondary to #1 POSTOPERATIVE DIAGNOSIS: Same OPERATION: 1. Cataract extraction using phacoemulsification with posterior chamber intraocular lens implant, left eye. 2. Capsular staining with Vision Blue IOL: IOL Crematorium Operator/Model: [employer]ael [employer] Asael / UMER Tecnis [id number] IOL Power: + 24.5 diopters IOL Serial Number: [id number] Optic Diameter: 6.0 mm Haptic/Overall Diameter: 13.0 mm PHACO INFO: [employer] Vision System with OZil and Active Fluidics Cumulative Dispersed Energy (CDE): 17.79 seconds SURGEON: Óscar Corral MD, FELICE ANESTHESIA: Monitored A [facility] (MAC), with local sub-tenon's anesthetic infiltration COMPLICATIONS: None SPECIMENS: None INDICATIONS FOR PROCEDURE: The patient is a 52-year-old lady with history of diminished visual acuity in both eyes secondary to the development of bilateral nuclear/cortical cataract, very dense. She has already undergone cataract surgery in the left eye. She had significant corneal edema postoperatively, which has since resolved. She now presents for cataract surgery in the left eye. Etiology of the corneal edema was uncertain. PROCEDURE: The correct surgical eye was identified and marked as the left eye and the pupil was dilated in the preoperative area using mydriatics and cycloplegics. The dilated pupil size was 5.5 mm. Oral sedation was administered in the form of an Imprimis MKO Melt (midazolam 3mg/ketamine 25mg/ondansetron 2mg). The patient was brought to the operating room where cardiopulmonary monitoring was instituted and surgical time-out was performed, confirming the correct operative eye and IOL power. Topical anesthesia was administered and ophthalmic povidone-iodine 5% was instilled into the conjunctival fornices. Lidocaine gel was applied to the cornea and the delaney-ocular area was prepped with Betadine 10% solution and draped in the usual sterile fashion for intraocular surgery, including an aperture drape. A Tegaderm transparent film dressing was cut in half and used to cover the lashes and lid margins. Care was taken to sequester the lashes and lid margins under the Tegaderm dressing. A lid speculum was placed between the lids of the operative eye and the [employer] LuxOR Rev[employer] operating microscope was maneuvered into position. Christina scissors were then used to make a conjunctival buttonhole approximately 6mm posterior to the limbus in the inferonasal quadrant. Blunt dissection was carried out to expose bare sclera, and a blunt-tipped sub-tenon?s anesthesia cannula was introduced and passed posteriorly along the globe where non-preserved plain lidocaine was injected into posterior sub-Tenon?s space. A sideport knife was used to make a paracentesis port superiorly/superiortemporally. Intraocular phenylephrine/lidocaine was injected int the anterior chamber.. Air was then injected into the anterior chamber, followed by Vision Blue, which was painted over the anterior capsule and then irrigated out using BSS. The anterior chamber was filled with viscoelastic. A 2.6 mm keratome knife was used to create a 2-plane near clear corneal tunnel extending approximately 2 mm into clear cornea temporally. A flap was raised on the anterior capsule and capsulorhexis forceps were used to complete a continuous curvilinear capsulorhexis of 5.0 mm. Balanced salt solution was then used to perform cortical cleaving hydrodissection and nuclear hydrodelineation until the lens could be freely rotated within the capsular bag. Additional Viscoat was then injected into the anterior chamber to protect the corneal endothelium. The lens nucleus was then disassembled and removed within the capsular bag and iris plane using phacoemulsification. Residual cortical material was removed using the 45-degree angled silicone I/A tip with 0.3mm port. The posterior capsule was carefully polished to remove as much residual lens epithelial cells as safely possible. The capsular bag was then inflated and the anterior chamber deepened with viscoelastic. The lens implant described above was inserted into the capsular bag using the UMER [place] Injector. A Kuglen hook was used to dial the IOL into position. Residual viscoelastic was then removed first from posterior to the IOL, then from the anterior chamber using the I/A handpiece. The lens implant was noted to center nicely within the capsular bag. The incisions were stromally hydrated, and the anterior chamber was reformed using BSS. Then 0.5cc of moxifloxacin 1.0mg/ml were injected into the capsular bag and anterior chamber. The incisions were checked with a Weck spear and found to be secure. Several drops of ophthalmic povidone-iodine 5% were then applied to the eye followed by two drops of Imprimis combination prednisolone/moxifloxacin/nepafenac solution. The drapes were removed and a clear plastic protective eye shield was placed over the eye. The patient was then returned to Same Day Surgery in stable condition.
[2022-05-01 12:34] VITALS: BP 111/71; PULSE 91; RESP 16; TEMP 36.3; O2SAT 99
--- NOTE | 2022-05-01 12:52 | W.ANESPOSTOP ---
Postoperative Evaluation Date, Time and Location Date Performed: 05/01/22 Time Performed: 12:35 Patient Location: Day Surgery Unit Vital Signs Most Recent Imported Vital Signs: Most Recent Vital Signs Temp Pulse Resp BP Pulse Ox 36.3 C L 91 H 16 111/71 99 05/01/22 12:34 05/01/22 12:34 05/01/22 12:34 05/01/22 12:34 05/01/22 12:34 Pain Score Most Recent Pain Score: Most Recent Pain Score Pain Level 0 05/01/22 12:34 Assessment Mental Status: Awake (Alert & Oriented to Patient Baseline) Airway and Respiratory Function: Patent airway with normal (patient baseline) respiratory exam Cardiovascular Function: Hemodynamically Stable Hydration Status: Adequately Hydrated Nausea & Vomiting: No Nausea or Vomiting Pain: Pt. Denies Any Pain Peripheral Nerve Block: Patient did not receive a nerve block
== END 2022-05-01 11:38 | disposition home or self-care (01) ==
PROVIDERS: PCP Family Medicine; Visit Provider Ophthalmology
PROC: (CPT 66984; principal; 2022-05-01 12:30)
DX: H25.812 Combined forms of age-related cataract, left eye (principal); J44.9 Chronic obstructive pulmonary disease, unspecified; I10 Essential (primary) hypertension; G81.91 Hemiplegia, unspecified affecting right dominant side
CPT/HCPCS: 66984; V2632

== ENCOUNTER 2023-01-09 02:18 | Outpatient (CLI) | payer MEDICARE, MEDICAID, SELFPAY ==
--- NOTE | 2023-01-09 | DI.DEXA_ITS ---
Exam(s) XR DEXA BONE DENSITY W/WO HELEN EXAM: XR DEXA BONE DENSITY W/WO HELEN CLINICAL HISTORY: OSTEOPOROSIS, M81.0 TECHNIQUE: Routine DEXA evaluation of the lumbar spine, hip, or forearm. COMPARISON: CR XR DEXA BONE DENSITY W/WO HELEN from 08/26/2020 FINDINGS: Performed on a [employer] unit. Lateral image: No compression fracture evident. Lumbar Spine total T-score: -3.6. Prior 2019 reading was -3.2 Hip total T-score:Not done. Bilateral hip prostheses. Forearm total T-score: -2.6 IMPRESSION: Bone mineral density measures in the osteoporosis range. Fracture risk is high. Note: Any spine fracture indicates 5x risk for subsequent spine fracture and 2x risk for subsequent h ip fracture. World Health Organization criteria for BMD interpretation classify patients: Normal...... T- Score at or above -1.0 Osteopenic... T- Score between -1.0 and -2.5 Osteoporosis... T-Score at or below -2.5
== END 2023-01-09 02:38 ==
PROVIDERS: PCP Family Medicine; Visit Provider Family Medicine
DX: M81.0 Age-related osteoporosis without current pathological fracture (principal)
CPT/HCPCS: 77080

== ENCOUNTER 2023-04-20 11:40 | Emergency (ER) | payer MEDICARE, MEDICAID, SELFPAY ==
[2023-04-20 11:42] VITALS: BP 151/81; PULSE 77; RESP 16; TEMP 36; O2SAT 99
--- NOTE | 2023-04-20 12:21 | DI.CT_ITS ---
Exam(s) CT THORACIC SPINE WO EXAM: CT THORACIC SPINE WO CLINICAL HISTORY: back pain. TECHNIQUE: Imaging Protocol: Axial computed tomography images with coronal and sagittal reformatted images were created and reviewed. CONTRAST MATERIAL: Intravenous: Omnipaque 350 Contrast volume:structured data in ml Contrast route:I V - Oral: yes / no COMPARISON: CR RIGHT CLAVICLE from 01/31/2018 CR RIGHT SHOULDER COMPLETE from 01/31/2018 CR XR DEXA BONE DENSITY W/WO HELEN from 08/26/2020 FINDINGS: There is generalized osteopenia. THORACIC SPINAL COLUMN: There is high-grade compression fracture of T4 which does not appear to have been present on DEXA scan gout lateral view of August 2020. The posterior superior cortex is mildly retropulsed at this level. No evidence of facet joint malalignment. Milder compression fractures of T11 and T12 noted at superior endplate levels, these. Which Schmorl' s node invagination XXXX in superior endplates and not appearing acute nor possess sing prominent pos terior cortical bulging. No obvious lytic nor blastic osseous lesions evident in vertebral bodies. Generalized osteopenia is noted. IMPRESSION: Multilevel compression fractures at T4, T11, and T12, probably not acute. There is generalized osteopenia evident. No significant canal compromise. Called to ER provider. RADIATION DOSE DELIVERED: 950.93 mGy.cm Total DLP DATA REPOSITORY: All CT scans at this facility are submitted to the National Radiology Data Registry (NRDR) Dose Index Registry (DIR) with the [employer] (ACR). RADIATION OPTIMIZATION: All CT scans at this facility use at least one of these dose optimization te chniques: automated exposure control; mA and/or kV adjustment per patient size (includes targeted exa ms where dose is matched to clinical indication); or iterative reconstruction.
--- NOTE | 2023-04-20 13:00 | DI.CT_ITS ---
Exam(s) CT ABDOMEN PELVIS WO EXAM: CT ABDOMEN PELVIS WO CLINICAL HISTORY: back and left flank pain. TECHNIQUE: Imaging Protocol: Axial computed tomography images with coronal and sagittal reformatted images were created and reviewed CONTRAST MATERIAL: Intravenous: none Oral: None COMPARISON: CT CT THORACIC SPINE WO from 04/20/2023 FINDINGS: VISUALIZED LUNG BASES: No nodules nor pleural effusions evident. ABDOMEN: Small hiatal hernia noted. There is no ascites. LIVER: There are no obvious focal hepatic lesions evident of this noninfused study. GALLBLADDER/BILIARY: Mild hyperdense bile. No gallstones identified. No gallbladder wall edema. CB D is not dilated. PANCREAS: No evidence of pancreatic mass nor dilatation of the pancreatic duct. SPLEEN: Spleen is not enlarged. No obvious intrasplenic lesions. ADRENALS: There are no significant adrenal masses. KIDNEYS:Small benign 8 millimeter cyst in the posterior cortex of the right kidney, not requiring fur ther investigation. No solid renal masses. No calculi. No hydronephrosis. No hydroureter.. ABDOMINAL AORTA: Calcified but not enlarged. Common iliac arteries also calcified but not enlarged. LYMPH NODES: There is no retroperitoneal nor paraaortic adenopathy. ABDOMINAL WALL: No evidence of significant anterior abdominal wall nor inguinal hernia. GI: There is no evidence of bowel obstruction, free air, nor abscess. PELVIS: LYMPH NODES: There is no intrapelvic nor inguinal adenopathy. GI: No evidence of appendicitis.No evidence of sigmoid diverticulitis. URINARY BLADDER: Partially obscured by beam hardening artifact from bilateral hip hardware. REPRODUCTIVE: Uterus size normal. No obvious abnormal adnexal masses. OSSEOUS: Right hip prosthesis. Left hip screws. Multiple compression fractures noted height loss of T12, T11, L4, and L5, probably not acute. IMPRESSION: 1. Age indeterminate compression fractures L4, L5, T11 and T12. Probably not acute. 2. Small hiatal hernia. No bowel obstruction or free air. No free fluid. 3. Right hip prosthesis. Left hip screws. 4. Other findings as above. RADIATION DOSE DELIVERED: Total DLP DATA REPOSITORY: All CT scans at this facility are submitted to the National Radiology Data Registry (NRDR) Dose Index Registry (DIR) with the [employer] (ACR). RADIATION OPTIMIZATION: All CT scans at this facility use at least one of these dose optimization te chniques: automated exposure control; mA and/or kV adjustment per patient size (includes targeted exa ms where dose is matched to clinical indication); or iterative reconstruction.
[2023-04-20 13:05] LABS: Abs Immature Grans 0.03 10^3/uL (0.0-0.06); Absolute Basophil Count 0.06 10^3/uL (0.0-0.2); Absolute Eosinophil Count 0.18 10^3/uL (0.0-0.7); Absolute Monocyte Count 0.66 10^3/uL (0.1-0.8); Absolute Neutrophil Count 4.62 10^3/uL (1.2-6.7); Basophils % 0.8; Eosinophils % 2.4; HCT 35.6 % (36.0-46.0); HGB 12.8 g/dL (11.2-15.7); Immature Grans % 0.4; Lymphocytes % 24.5; MCH 36.7 pg (27.0-33.0); MCV 102 fL (80-95); MPV 10.1 fL (8.0-11.0); Neutrophils % 62.9; Platelet Count 203 10^3/uL (130-400); RBC 3.49 10^6/uL (3.93-5.22); RDW 12.3 % (11.7-14.6); RDW-SD 46.2 fL; WBC 7.35 10^3/uL (4.4-10.8)
[2023-04-20] MEDS: oxyCODONE 5 mg/Acetaminophen 325 mg TAB 2 TAB PO (13:29)
[2023-04-20 13:30] LABS: ALT 22 U/L (14-59); AST 21 U/L (15-37); Albumin 3.8 g/dL (3.4-5.0); Alkaline Phosphatase 79 U/L (46-116); Anion Gap 9.8 mmol/L (3-11); BUN 4 mg/dL (7-18); Bilirubin, Total 0.8 mg/dL (0.2-1.0); C-Reactive Protein 0.43 mg/dL (0.0-0.3); CO2 28.2 mmol/L (21.0-32.0); CREATININE 0.6 mg/dL (0.55-1.02); Calcium 9.2 mg/dL (8.5-10.1); Chloride 93 mmol/L (98-107); Glucose 104 mg/dL (74-106); Lipase 59 U/L (16-77); Potassium 4.3 mmol/L (3.5-5.1); Sodium 131 mmol/L (136-145); Total Protein 7.8 g/dL (6.4-8.2)
--- NOTE | 2023-04-20 14:10 | ED.GENADUL_ITS ---
Discharge Plan Disposition Patient Disposition: Home Discharge Details Clinical Impression: Compression fracture of body of thoracic vertebra, Compression fracture of L1 lumbar vertebra Primary Care Provider: Terrence Che ED Provider: Nilsa Starks Home Meds and New Rx's Prescriptions: New oxycodone 5 mg capsule 5 mg PO Q8H PRNQty: 10 0RF Continued metoprolol succinate 50 mg Tablet Extended Release 24 Hr 50 mg PO BID lisinopril 40 MG tablet 40 mg PO DAILY naproxen [Naprosyn] 375 MG tablet 375 mg PO BID PRN (Reason: Pain) Qty: 28 0RF methocarbamol 500 mg tablet 2 tab PO QID Patient Comments: TAKE TWO TABLETS BY MOUTH FOUR TIMES A DAY FOR 14 DAYS NEEDED FOR SPASM atorvastatin 20 mg tablet 1 tab PO DAILY Patient Comments: TAKE ONE TABLET BY MOUTH EVERY DAY albuterol sulfate 2.5 mg /3 mL (0.083 %) solution for nebulization 2.5 ml inhalation Q3H PRN Patient Comments: INHALE CONTENTS OF 1 VIAL IN NEBULIZER EVERY 3 HOURS urea 20 % cream 1 applic TOPICAL HS Patient Comments: APPLY TO AFFECTED AREA AT BEDTIME levothyroxine 75 mcg tablet 1 tab PO DAILY Patient Comments: TAKE ONE TABLET BY MOUTH EVERY DAY ketoconazole 2 % cream 1 applic TOPICAL BID Patient Comments: APPLY TOPICALLY TO THE AFFECTED AREA TWICE DAILY FOR 2 WEEKS NEEDED fluticasone propionate 50 mcg/actuation [place],Suspension 2 spray INTRANASAL DAILY oxycodone 5 mg tablet 1 tab PO Q4H PRN Patient Comments: TAKE 1 TABLET BY MOUTH EVERY 4 HOURS FOR 7 DAYS DIRECTED budesonide-formoterol 160-4.5 mcg/actuation HFA aerosol inhaler 2 puff inhalation BID Patient Comments: INHALE TWO PUFFS BY MOUTH TWICE A DAY DIRECTED Discharge Instructions Additional Instructions: Take Tylenol as needed for pain, 650 mg every 6-8 hours You may take oxycodone sparingly, this is addictive and should be used cautiously Please establish care with a new primary care physician, I have placed a referral Please follow-up with the spine center at [facility] for recommendations on treatment of your compression fractures Also giving you a physical therapy referral as I suspect you are deconditioned secondary to your multiple illnesses Recommend smoking cessation Return earlier should you have acute changes in bowel or bladder, strength or sensation change, fever, or with any new or worsening complaints Stand Alone Forms: Physical Therapy Referral Referrals: Terrence Che [Primary Care Provider] - Discharge Data Discharge Date/Time-TO BE ENTERED AT DEPARTURE: 04/20/23 16:02 Medical Decision Making 53-year-old female with significant osteoporosis history presents with report of worsening back pain in the thoracic and lumbar region, radiation into flank Because of her history CT abdomen pelvis and thoracic spine was ordered, she has compression fractures to numerous areas in thoracic and lumbar spine, she is made aware regarding this finding and referred to both physical per radiology interpretation and my review therapy and to the spine [place] at [facility] for assessment She is given a small amount of opiate analgesia, she has no clinical signs and symptoms consistent with cauda equina syndrome and is stable for discharge home at this time Return precautions reviewed and patient expressed understanding HPI General Date/Time Provider Initiated Documentation: 04/20/23 11:50 . HPI Narrative: This 53-year-old female presents with report of back and flank pain which started several days ago. Denies known incident. Denies history of pain similar to this in the past. Has complicated history of osteoporosis and COPD Denies any known traumatic injuries. Denies any abdominal discomfort, chest pain, shortness of breath. Denies any strength or sensation changes to extremities. Denies any fever or chills. Denies illicit drug use. States the pain is exacerbated with movement and lifting left arm. Denies any paresthesias to groin region or urinary complaints. Denies any changes in bowel or bladder Related Data Home Medications Medication Instructions Recorded Confirmed lisinopril 40 mg tablet 40 mg PO DAILY 01/31/18 05/01/22 naproxen 375 mg tablet (Naprosyn) 375 mg PO BID PRN Pain #28 tabs 01/31/18 04/28/22 metoprolol succinate 50 mg 50 mg PO BID 09/27/19 05/01/22 tablet,extended release 24 hr albuterol sulfate 2.5 mg/3 mL 2.5 ml inhalation Q3H PRN 04/06/22 04/28/22 (0.083 %) solution for nebulization atorvastatin 20 mg tablet 1 tab PO DAILY 04/06/22 05/01/22 budesonide-formoterol HFA 160 2 puff inhalation BID 04/06/22 05/01/22 mcg-4.5 mcg/actuation aerosol inhaler fluticasone propionate 50 2 spray intranasal DAILY 04/06/22 04/28/22 mcg/actuation nasal spray,suspension ketoconazole 2 % topical cream 1 applic topical BID 04/06/22 04/28/22 levothyroxine 75 mcg tablet 1 tab PO DAILY 04/06/22 05/01/22 methocarbamol 500 mg tablet 2 tab PO QID 04/06/22 04/28/22 oxycodone 5 mg tablet 1 tab PO Q4H PRN 04/06/22 04/28/22 urea 20 % topical cream 1 applic topical HS 04/06/22 04/28/22 oxycodone 5 mg capsule 5 mg PO Q8H PRN #10 caps 04/20/23 Previous Rx's Medication Instructions Recorded naproxen 375 mg tablet (Naprosyn) 375 mg PO BID PRN Pain #28 tabs 01/31/18 oxycodone 5 mg capsule 5 mg PO Q8H PRN #10 caps 04/20/23 Allergies Allergy/AdvReac Type Severity Reaction Status Date / Time erythromycin base Allergy Intermediate Skin Rash Verified 04/20/23 11:47 General Stated Complaint: FlankPain BARTOLOME: 3 PFSH All Active Problems (Updated 04/20/23 @ 15:41 by MILKA Garnica) Compression fracture of body of thoracic vertebra (Acute) Compression fracture of L1 lumbar vertebra (Acute) Medical History Acrocyanosis Acute ankle pain Cerebral arteriovenous malformation Closed intertrochanteric fracture of femur Congenital arteriovenous malformation COPD (chronic obstructive pulmonary disease) Eczema Essential hypertension Hx of falling Hypo-osmolality and hyponatremia Hypothyroidism Osteoarthritis Osteopenia Osteoporosis Pain, joint, shoulder, right Pharyngeal candidiasis PVD (peripheral vascular disease) Right foot drop Right hemiparesis utilizes a walker to ambulate Right knee pain Seasonal allergic rhinitis Stasis dermatitis Tinea corporis Tobacco user Venous stasis ulcer Surgical History History of hip replacement Hx of biopsy Social History Smoking/Tobacco Use Status: Current every day Tobacco Type: cigarettes Smoking risk assessment performed?: Yes Alcohol Intake: current Alcohol Intake frequency: 3 or more drinks per day Drug use: Occasionally Substance use type: marijuana Details: had vape pen yesterday 05/01/22 Do you feel safe at home: Yes Do you feel safe in your relationship?: Yes Exam Narrative Exam Narrative: Patient appears uncomfortable, she has tenderness in the left flank region and midline, no abdominal tenderness, neurovascularly intact, no abdominal tenderness, no signs consistent with cauda equina syndrome, strength and sensation intact distally Course Vital Signs Vital signs: Vital Signs Temperature 36.0 C L 04/20/23 11:42 Pulse 77 04/20/23 11:42 Respiratory Rate 16 04/20/23 11:42 Blood Pressure 151/81 H 04/20/23 11:42 Pulse Oximetry 99 04/20/23 11:42 Temperature 36.0 C L 04/20/23 11:42 Temperature Source Skin 04/20/23 11:42 Pulse 77 04/20/23 11:42 Respiratory Rate 16 04/20/23 11:42 Respiratory Effort Normal 04/20/23 11:52 Blood Pressure 151/81 H 04/20/23 11:42 Blood Pressure Position Sitting 04/20/23 11:42 Pulse Oximetry 99 04/20/23 11:42 Oxygen Delivery Method Room Air 04/20/23 11:42 Oxygen Flow Rate 0 04/20/23 11:42 Pain Level 5 04/20/23 11:42 Lab/Test Results Lab/Test Results: Laboratory Tests Range/Units 04/20/23 04/20/23 12:46 12:46 WBC (4.4-10.8) 10^3/uL 7.35 RBC (3.93-5.22) 10^6/uL 3.49 L Hgb (11.2-15.7) g/dL 12.8 Hct (36.0-46.0) % 35.6 L MCV (80-95) fL 102 H MCH (27.0-33.0) pg 36.7 H MCHC (32.0-36.0) % 36.0 RDW (11.7-14.6) % 12.3 Plt Count (130-400) 10^3/uL 203 MPV (8.0-11.0) fL 10.1 Immature Gran % 0.4 Neutrophils % 62.9 Lymphocytes % 24.5 Monocytes % 9.0 Eosinophils % 2.4 Basophils % 0.8 Nucleated RBC % (0.0-0.3) % 0.0 Absolute Neutrophils (1.2-6.7) 10^3/uL 4.62 Absolute Lymphocytes (1.2-3.4) 10^3/uL 1.80 Absolute Monocytes (0.1-0.8) 10^3/uL 0.66 Absolute Eosinophils (0.0-0.7) 10^3/uL 0.18 Absolute Basophils (0.0-0.2) 10^3/uL 0.06 Sodium (136-145) mmol/L 131 L Potassium (3.5-5.1) mmol/L 4.3 Chloride (98-107) mmol/L 93 L Carbon Dioxide (21.0-32.0) mmol/L 28.2 Anion Gap (3-11) mmol/L 9.8 BUN (7-18) mg/dL 4 L Creatinine (0.55-1.02) mg/dL 0.6 Est GFR (CKD-EPI 2020) (mL/min/1.73m2) 106.60 Glucose (74-106) mg/dL 104 Calcium (8.5-10.1) mg/dL 9.2 Total Bilirubin (0.2-1.0) mg/dL 0.8 AST (15-37) U/L 21 ALT (14-59) U/L 22 Alkaline Phosphatase (46-116) U/L 79 C-Reactive Protein (0.0-0.3) mg/dL 0.43 H Total Protein (6.4-8.2) g/dL 7.8 Albumin (3.4-5.0) g/dL 3.8 Lipase (16-77) U/L 59 PAWSS Have you Been Recently Intoxicated or Drunk Within the Last 30 days?: No Have you Ever Experienced Previous Episodes of Alcohol Withdrawal?: No Have you ever Experienced Withdrawal Seizures?: No Have you ever Experienced Delirium Tremens(DT)s?: No Have you ever undergone Alcohol Rehabilitation Treatment (i.e, inpt ot outpatient treatment programs)?: No Have you ever Experienced Blackouts?: No Have you ever Combined Alcohol with other Downers within the last 90 days?: No Have you ever Combined Alcohol with any other Substance of Abuse during the last 90 days?: No Positive Blood Alcohol level on Presentation? [PCS.BAL]: No Evidence of Increased Autonomic Activity (i.e. HR>120, tremor, sweating, agitation, nausea)?: No Result: 0
--- NOTE | 2023-04-20 15:31 | NUR.NOTE ---
Nursing Note: PT needs follow up MARIAM with Spine @ [facility] [place] for [place] FX & back pain. Also needs to establish care with PCP. Mansi, ED
[2023-04-20 15:59] VITALS: BP 136/78; PULSE 76; RESP 16; O2SAT 94
== END 2023-04-20 16:02 | disposition home or self-care (01) ==
PROVIDERS: Emergency Provider Physician Assistant; PCP Family Medicine
DX: M48.54XA Collapsed vertebra, not elsewhere classified, thoracic region, initial encounter for fracture (principal); M48.56XA Collapsed vertebra, not elsewhere classified, lumbar region, initial encounter for fracture; M81.0 Age-related osteoporosis without current pathological fracture
CPT/HCPCS: 80053; 83690; 99285; 72128; 74176; 85025; 86140; 99284

== ENCOUNTER 2024-01-25 10:29 | Emergency (ER) | payer MEDICARE, SELFPAY ==
[2024-01-25 10:31] VITALS: BP 148/76; PULSE 85; RESP 16; TEMP 36.9; O2SAT 99
[2024-01-25 10:46] VITALS: BP 184/97; PULSE 85; RESP 16; TEMP 36.9; O2SAT 100
--- NOTE | 2024-01-25 10:49 | W.ED.GENAD ---
Discharge Plan Disposition Patient Disposition: Home Condition: Stable Discharge Details Clinical Impression: Pain in rib, COPD exacerbation Primary Care Provider: Terrence Che ED Provider: Marky Horne Home Meds and New Rx's Prescriptions: New prednisone 20 mg tablet 40 mg PO DAILY 5 Days Qty: 10 0RF doxycycline hyclate 100 mg capsule 100 mg PO BID 7 Days Qty: 14 0RF promethazine 6.25 mg/5 mL syrup 12.5 mg PO Q6H PRN (Reason: cough) Qty: 120 0RF No Action metoprolol succinate 50 mg Tablet Extended Release 24 Hr 50 mg PO BID lisinopril 40 MG tablet 40 mg PO DAILY naproxen [Naprosyn] 375 MG tablet 375 mg PO BID PRN (Reason: Pain) Qty: 28 0RF Hold Instructions: Changed by Provider methocarbamol 500 mg tablet 2 tab PO QID Patient Comments: TAKE TWO TABLETS BY MOUTH FOUR TIMES A DAY FOR 14 DAYS NEEDED FOR SPASM atorvastatin 20 mg tablet 1 tab PO DAILY Patient Comments: TAKE ONE TABLET BY MOUTH EVERY DAY albuterol sulfate 2.5 mg /3 mL (0.083 %) solution for nebulization 2.5 ml inhalation Q3H PRN Patient Comments: INHALE CONTENTS OF 1 VIAL IN NEBULIZER EVERY 3 HOURS levothyroxine 75 mcg tablet 1 tab PO DAILY Patient Comments: TAKE ONE TABLET BY MOUTH EVERY DAY fluticasone propionate 50 mcg/actuation [place],Suspension 2 spray INTRANASAL DAILY budesonide-formoterol 160-4.5 mcg/actuation HFA aerosol inhaler 2 puff inhalation BID Patient Comments: INHALE TWO PUFFS BY MOUTH TWICE A DAY DIRECTED oxycodone 5 mg capsule 5 mg PO Q8H PRNQty: 10 0RF Discharge Instructions Instructions: COPD (Chronic Obstructive Pulmonary Disease) (ED) HPI General Date/Time Provider Initiated Documentation: 01/25/24 10:32. Limitations to Documentation: no limitations. Information obtained by: patient. HPI Narrative: 53-year-old female with past medical history of COPD presents for evaluation of cough, left-sided rib pain. She reports that about 2 weeks ago she hit her left side and thinks that she broke a rib. She states that she has been coughing a lot more lately. Cough is productive sometimes. She states that the cough makes the rib pain worse. She has been using her rescue inhaler about every 4 hours which is atypical for her. Denies any fever. Related Data Home Medications Medication Instructions Recorded Confirmed lisinopril 40 mg tablet 40 mg PO DAILY 01/31/18 01/25/24 naproxen 375 mg tablet (Naprosyn) 375 mg PO BID PRN Pain #28 tabs 01/31/18 01/25/24 metoprolol succinate 50 mg 50 mg PO BID 09/27/19 01/25/24 tablet,extended release 24 hr albuterol sulfate 2.5 mg/3 mL 2.5 ml inhalation Q3H PRN 04/06/22 01/25/24 (0.083 %) solution for nebulization atorvastatin 20 mg tablet 1 tab PO DAILY 04/06/22 01/25/24 budesonide-formoterol HFA 160 2 puff inhalation BID 04/06/22 01/25/24 mcg-4.5 mcg/actuation aerosol inhaler fluticasone propionate 50 2 spray intranasal DAILY 04/06/22 01/25/24 mcg/actuation nasal spray,suspension levothyroxine 75 mcg tablet 1 tab PO DAILY 04/06/22 01/25/24 methocarbamol 500 mg tablet 2 tab PO QID 04/06/22 01/25/24 oxycodone 5 mg capsule 5 mg PO Q8H PRN #10 caps 04/20/23 01/25/24 doxycycline hyclate 100 mg capsule 100 mg PO BID 7 days #14 caps 01/25/24 prednisone 20 mg tablet 40 mg (2 x 20 mg) PO DAILY 5 days 01/25/24 #10 tabs promethazine 6.25 mg/5 mL oral 12.5 mg (10 mL) PO Q6H PRN cough 01/25/24 syrup #120 mL Previous Rx's Medication Instructions Recorded naproxen 375 mg tablet (Naprosyn) 375 mg PO BID PRN Pain #28 tabs 01/31/18 oxycodone 5 mg capsule 5 mg PO Q8H PRN #10 caps 04/20/23 doxycycline hyclate 100 mg capsule 100 mg PO BID 7 days #14 caps 01/25/24 prednisone 20 mg tablet 40 mg (2 x 20 mg) PO DAILY 5 days 01/25/24 #10 tabs promethazine 6.25 mg/5 mL oral 12.5 mg (10 mL) PO Q6H PRN cough 01/25/24 syrup #120 mL Allergies Allergy/AdvReac Type Severity Reaction Status Date / Time erythromycin base Allergy Intermediate Skin Rash Verified 01/25/24 10:37 General Stated Complaint: RespSymp BARTOLOME: 3 Exam Narrative Exam Narrative: Review of Systems: All systems reviewed & are unremarkable except as noted in HPI and below Well-developed, no acute distress NCAT PERRL, normal conjunctiva RRR, hypertensive Unlabored respiratory effort, wheezing expiratory Nondistended abdomen Extremities w/o deformity, no cyanosis, no edema No rashes or lesions. no focal neurologic deficits Appropriate mood and affect Course Vital Signs Vital signs: Vital Signs Temperature 36.9 C 01/25/24 10:31 Pulse 85 01/25/24 10:31 Respiratory Rate 16 01/25/24 10:31 Blood Pressure 148/76 H 01/25/24 10:31 Pulse Oximetry 99 01/25/24 10:31 Temperature 36.9 C 01/25/24 10:31 Pulse 85 01/25/24 10:31 Respiratory Rate 16 01/25/24 10:31 Blood Pressure 148/76 H 01/25/24 10:31 Blood Pressure Position Sitting 01/25/24 10:31 Pulse Oximetry 99 01/25/24 10:31 Oxygen Delivery Method Room Air 01/25/24 10:31 Oxygen Flow Rate 0 01/25/24 10:31 Pain Level 4 01/25/24 10:31 Comment Pain in back rib on left side 01/25/24 10:31 Medical Decision Making Emergent evaluation of chest pain and shortness of breath. Initial differential includes rib fracture, contusion, pneumonia, COPD exacerbation. Patient is not hypoxic or having significant respiratory distress, but she is wheezing. Plan for steroids, bronchodilator. Her chest pain is likely musculoskeletal, but given her hypertension and history will get lab work and EKG. Chest x-ray without signs of focal consolidation. Lab work including cardiac enzyme is unremarkable. Symptoms improved after steroids and bronchodilator. Will discharge with steroid course and doxycycline for atypical pneumonia coverage. Lidocaine patch given for rib discomfort. Follow-up with PCP as needed. Return precautions advised. Medical Records Medical records reviewed: Yes I reviewed the patient's medical records. Lab Data Lab results reviewed: Yes I reviewed the patient's lab results. Quality:SDOH Health Related Social Needs: No Data to Display [facility] All Active Problems (Updated 01/25/24 @ 12:02 by Marky Horne MD) COPD exacerbation (Acute) Pain in rib (Acute) Medical History Hx of falling Osteopenia Venous stasis ulcer Tobacco user Tinea corporis Stasis dermatitis Seasonal allergic rhinitis Right knee pain Right hemiparesis utilizes a walker to ambulate Right foot drop Pharyngeal candidiasis PVD (peripheral vascular disease) Pain, joint, shoulder, right Osteoporosis Osteoarthritis Hypothyroidism Hypo-osmolality and hyponatremia Essential hypertension Eczema Congenital arteriovenous malformation Closed intertrochanteric fracture of femur COPD (chronic obstructive pulmonary disease) Cerebral arteriovenous malformation Acute ankle pain Acrocyanosis Surgical History History of hip replacement Hx of biopsy Social History Smoking/Tobacco Use Status: Current every day Tobacco Type: cigarettes Smoking risk assessment performed?: Yes Alcohol Intake: current Alcohol Intake frequency: 3 or more drinks per day Drug use: Occasionally Substance use type: marijuana Details: edibles at night to help sleep Do you feel safe at home: Yes Do you feel safe in your relationship?: Yes
[2024-01-25 11:10] LABS: Abs Immature Grans 0.02 10^3/uL (0.0-0.06); Absolute Basophil Count 0.11 10^3/uL (0.0-0.2); Absolute Eosinophil Count 0.31 10^3/uL (0.0-0.7); Absolute Lymphocyte Count 1.95 10^3/uL (1.2-3.4); Absolute Monocyte Count 0.62 10^3/uL (0.1-0.8); Basophils % 1.4; Eosinophils % 3.9; HCT 38.3 % (36.0-46.0); HGB 13.5 g/dL (11.2-15.7); Immature Grans % 0.3; Lymphocytes % 24.7; MCHC 35.2 % (32.0-36.0); MCV 105 fL (80-95); MPV 9.9 fL (8.0-11.0); Monocytes % 7.8; Neutrophils % 61.9; Platelet Count 255 10^3/uL (130-400); RBC 3.65 10^6/uL (3.93-5.22); RDW 11.7 % (11.7-14.6); RDW-SD 45.6 fL; WBC 7.91 10^3/uL (4.4-10.8)
--- NOTE | 2024-01-25 11:19 | DI.RAD_ITS ---
Exam(s) XR CHEST 2V PA LATERAL EXAM: XR CHEST 2V PA LATERAL CLINICAL HISTORY: cough TECHNIQUE: 2D digital imaging was performed. Two views. COMPARISON: CR RIGHT CLAVICLE from 01/31/[address] THORACIC SPINE WO from 04/20/2023 FINDINGS: HEART: Normal size. Aorta: Not dilated. PULMONARY VASCULATURE: Normal. LUNGS: Hyperinflated but clear. PLEURAL SPACE: No pleural effusion or pneumothorax. BONE:Stable compression fractures. Soft tissues: Unremarkable. IMPRESSION: No acute abnormality. DATA REPOSITORY: RADIATION DOSE DELIVERED:
--- NOTE | 2024-01-25 11:30 | RT.EKG_ITS ---
APPROVED REPORT Exam: Resting ECG Reason for Exam: Shortness of breath Patient Location: E HR:64 bpm ECG Measurements Heart Rate 64 AXIS [place] 144 P 65 QRSd 80 QRS 84 QT 405 T 60 QTc 419 Conclusion Sinus rhythm. normal axis no stemi
[2024-01-25] MEDS: Albuterol/Ipratropium 3 ML UPD VIAL UPD (11:33)
[2024-01-25] MEDS: methylPREDNISolone SUCC 125 MG VIAL IVP (11:33)
[2024-01-25 11:38] LABS: ALT 21 U/L (14-59); AST 20 U/L (15-37); Albumin 4.1 g/dL (3.4-5.0); Alkaline Phosphatase 73 U/L (46-116); Anion Gap 8.2 mmol/L (3-11); BUN 8 mg/dL (7-18); Bilirubin, Total 0.6 mg/dL (0.2-1.0); CO2 26.8 mmol/L (21.0-32.0); CREATININE 0.6 mg/dL (0.55-1.02); Calcium 9.2 mg/dL (8.5-10.1); Chloride 95 mmol/L (98-107); Glucose 82 mg/dL (74-106); Potassium 4.2 mmol/L (3.5-5.1); Sodium 130 mmol/L (136-145); Total Protein 8.1 g/dL (6.4-8.2); Troponin I < 50 ng/L (< or =60)
[2024-01-25 11:41] LABS: NT-proBNP 422 pg/mL (<300)
[2024-01-25] MEDS: Lidocaine 5% Patch 1 PATCH TP (12:07)
[2024-01-25 12:09] VITALS: BP 155/76; PULSE 70; RESP 18; O2SAT 98
[2024-01-25 12:17] VITALS: BP 135/77; PULSE 76; RESP 18; O2SAT 96
== END 2024-01-25 12:17 | disposition home or self-care (01) ==
PROVIDERS: Emergency Provider Emergency Medicine; PCP Family Medicine
DX: J44.1 Chronic obstructive pulmonary disease with (acute) exacerbation (principal); I10 Essential (primary) hypertension
CPT/HCPCS: 80053; 93005; 94640; 96374; 99285; 71046; 83880; 84484; 85025; 93010; 99284; J2930; J7620

== ENCOUNTER 2024-02-26 11:54 | Emergency (ER) | payer MEDICARE, SELFPAY ==
[2024-02-26 11:58] VITALS: BP 173/88; PULSE 78; RESP 16; TEMP 36.2; O2SAT 98
--- NOTE | 2024-02-26 12:31 | ED.GENADUL_ITS ---
Discharge Plan Disposition Patient Disposition: Home Condition: Stable Discharge Details Clinical Impression: Skin infection Primary Care Provider: Terrence Che ED Provider: Óscar Hernandez Home Meds and New Rx's Prescriptions: New clotrimazole 1 % cream 1 applic topical BID 7 Days Qty: 15 0RF amoxicillin-pot clavulanate 875-125 mg tablet 1 tab PO BID 7 Days Qty: 14 0RF No Action metoprolol succinate 50 mg Tablet Extended Release 24 Hr 50 mg PO BID Arnuity Ellipta 50 mcg/actuation blister with device inhalation lisinopril 40 MG tablet 40 mg PO DAILY atorvastatin 20 mg tablet 1 tab PO DAILY Patient Comments: TAKE ONE TABLET BY MOUTH EVERY DAY albuterol sulfate 2.5 mg /3 mL (0.083 %) solution for nebulization 2.5 ml inhalation Q3H PRN Patient Comments: INHALE CONTENTS OF 1 VIAL IN NEBULIZER EVERY 3 HOURS levothyroxine 75 mcg tablet 1 tab PO DAILY Patient Comments: TAKE ONE TABLET BY MOUTH EVERY DAY fluticasone propionate 50 mcg/actuation [place],Suspension 2 spray INTRANASAL DAILY budesonide-formoterol 160-4.5 mcg/actuation HFA aerosol inhaler 2 puff inhalation BID Patient Comments: INHALE TWO PUFFS BY MOUTH TWICE A DAY DIRECTED Discharge Instructions Instructions: Animal Bite (ED) HPI General Date/Time Provider Initiated Documentation: 02/26/24 12:30 . HPI Narrative: 53-year-old female presents 2 months after sustaining dog bite injury to right forearm has been treating at home with various products. Noticed continued redness flakiness and itchiness over the last couple of weeks. Denies fevers chills or other systemic signs of illness. Related Data Home Medications Medication Instructions Recorded Confirmed lisinopril 40 mg tablet 40 mg PO DAILY 01/31/18 02/26/24 metoprolol succinate 50 mg 50 mg PO BID 09/27/19 02/26/24 tablet,extended release 24 hr albuterol sulfate 2.5 mg/3 mL 2.5 ml inhalation Q3H PRN 04/06/22 02/26/24 (0.083 %) solution for nebulization atorvastatin 20 mg tablet 1 tab PO DAILY 04/06/22 02/26/24 budesonide-formoterol HFA 160 2 puff inhalation BID 04/06/22 02/26/24 mcg-4.5 mcg/actuation aerosol inhaler fluticasone propionate 50 2 spray intranasal DAILY 04/06/22 02/26/24 mcg/actuation nasal spray,suspension levothyroxine 75 mcg tablet 1 tab PO DAILY 04/06/22 02/26/24 amoxicillin 875 mg-potassium 1 tab PO BID 7 days #14 tabs 02/26/24 clavulanate 125 mg tablet clotrimazole 1 % topical cream 1 applic topical BID 7 days #15 02/26/24 grams fluticasone furoate 50 inhalation 02/26/24 mcg/actuation blister powder for inhalation (Arnuity Ellipta) Previous Rx's Medication Instructions Recorded amoxicillin 875 mg-potassium 1 tab PO BID 7 days #14 tabs 02/26/24 clavulanate 125 mg tablet clotrimazole 1 % topical cream 1 applic topical BID 7 days #15 02/26/24 grams Allergies Allergy/AdvReac Type Severity Reaction Status Date / Time erythromycin base Allergy Intermediate Skin Rash Verified 02/26/24 12:25 General Stated Complaint: RashLesion BARTOLOME: 4 Review of Systems Narrative: Review of Systems Constitutional: negative Eyes: negative ENT: negative Cardiovascular: negative Respiratory: negative Gastrointestinal: negative : negative Musculoskeletal: negative Skin: Skin infection Neurologic: negative Psych: negative Exam Narrative Exam Narrative: Physical Examination General: alert, awake, cooperative, resting comfortably, no acute distress Skin: See extremity Extremities: 7 x 5 cm raised erythematous plaque overlying right forearm, no fluctuance no purulence, does have flaky white surface, no lymphangitic streakin g; full range of motion neurovascular exam of limb intact Course Vital Signs Vital signs: Vital Signs Temperature 36.2 C L 02/26/24 11:58 Pulse 78 02/26/24 11:58 Respiratory Rate 16 02/26/24 11:58 Blood Pressure 173/88 H 02/26/24 11:58 Pulse Oximetry 98 02/26/24 11:58 Temperature 36.2 C L 02/26/24 11:58 Temperature Source Tympanic 02/26/24 11:58 Pulse 78 02/26/24 11:58 Respiratory Rate 16 02/26/24 11:58 Respiratory Effort Normal, Non-Labored 02/26/24 12:08 Blood Pressure 173/88 H 02/26/24 11:58 Blood Pressure Position Sitting 02/26/24 11:58 Pulse Oximetry 98 02/26/24 11:58 Oxygen Delivery Method Room Air 02/26/24 11:58 Oxygen Flow Rate 0 02/26/24 11:58 Pain Level 0 02/26/24 11:58 Medical Decision Making 53-year-old female presents 2 months after sustaining dog bite injury to right forearm has been treating at home with various products. Noticed continued redness flakiness and itchiness over the last couple of weeks. Denies fevers chills or other systemic signs of illness. 7 x 5 cm raised erythematous plaque overlying right forearm, no fluctuance no purulence, does have flaky white surface, no lymphangitic streaking; full range of motion neurovascular exam of limb intact; likely component of fungal infection superimposed on subacute inflammation no discrete area to suggest abscess or retained foreign body, must consider localized cellulitis. Will initiate Augmentin as well as topical antifungal Quality:SDOH Health Related Social Needs: No Data to Display PFSH All Active Problems (Updated 02/26/24 @ 12:37 by Óscar Hernandez MD) Skin infection (Acute) Medical History Hx of falling Osteopenia Venous stasis ulcer Tobacco user Tinea corporis Stasis dermatitis Seasonal allergic rhinitis Right knee pain Right hemiparesis utilizes a walker to ambulate Right foot drop Pharyngeal candidiasis PVD (peripheral vascular disease) Pain, joint, shoulder, right Osteoporosis Osteoarthritis Hypothyroidism Hypo-osmolality and hyponatremia Essential hypertension Eczema Congenital arteriovenous malformation Closed intertrochanteric fracture of femur COPD (chronic obstructive pulmonary disease) Cerebral arteriovenous malformation Acute ankle pain Acrocyanosis Surgical History History of hip replacement Hx of biopsy Social History Smoking/Tobacco Use Status: Current every day Tobacco Type: cigarettes Smoking risk assessment performed?: Yes Alcohol Intake: current Alcohol Intake frequency: 3 or more drinks per day Drug use: Occasionally Substance use type: marijuana Details: edibles at night to help sleep Housing: house Do you feel safe at home: Yes Do you feel safe in your relationship?: Yes PAWSS Have you Been Recently Intoxicated or Drunk Within the Last 30 days?: No Have you Ever Experienced Previous Episodes of Alcohol Withdrawal?: No Have you ever Experienced Withdrawal Seizures?: No Have you ever Experienced Delirium Tremens(DT)s?: No Have you ever undergone Alcohol Rehabilitation Treatment (i.e, inpt ot outpatient treatment programs)?: No Have you ever Experienced Blackouts?: No Have you ever Combined Alcohol with other Downers within the last 90 days?: No Have you ever Combined Alcohol with any other Substance of Abuse during the last 90 days?: No Positive Blood Alcohol level on Presentation? [PCS.BAL]: No Evidence of Increased Autonomic Activity (i.e. HR>120, tremor, sweating, agitation, nausea)?: No Result: 0
[2024-02-26 12:42] VITALS: BP 145/84
== END 2024-02-26 12:48 | disposition home or self-care (01) ==
PROVIDERS: Emergency Provider Emergency Medicine; PCP Family Medicine
DX: L08.89 Other specified local infections of the skin and subcutaneous tissue (principal); I10 Essential (primary) hypertension; J44.9 Chronic obstructive pulmonary disease, unspecified; F17.210 Nicotine dependence, cigarettes, uncomplicated
CPT/HCPCS: 99283; 82340; 82570

== ENCOUNTER 2024-02-26 14:10 | Outpatient (REF) | payer MEDICARE, SELFPAY ==
[2024-02-27 09:33] LABS: Calcium Urine 5.7 mg/dL (See Note); Calcium Urine 24 hr 94 mg/24hr (100-300); Timed Urine Volume 1650 mL
[2024-02-28 18:01] LABS: Creatinine,Urine 20.32 mg/dL
[2024-02-28 18:02] LABS: Creatinine,24hr Ur 0.33 g/24hr (0.60-1.80); Total Volume 1650 ml
== END 2024-02-26 14:11 | disposition home or self-care (01) ==
LOC: LBN 14:10
PROVIDERS: PCP Family Medicine; Visit Provider Student in an Organized Health Care Education/Training Program
DX: M81.0 Age-related osteoporosis without current pathological fracture (principal)
CPT/HCPCS: 82340; 82570

== ENCOUNTER 2024-07-24 01:26 | Outpatient (CLI) | payer MEDICARE, SELFPAY ==
--- NOTE | 2024-07-24 | DI.CTLCSR_ITS ---
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 TECHNIQUE: Imaging Protocol: Low Dose Technique CONTRAST MATERIAL: None COMPARISON: CR XR CHEST 2V PA LATERAL from 01/25/2024 FINDINGS: CHEST: LUNGS: There are no ominous pulmonary nodules. There are no confluent infiltrates. No pleural effusi ons. MEDIASTINUM: There is no obvious hilar nor mediastinal adenopathy. CARDIAC: Heart size is normal. There is no pericardial effusion.Caliber of the thoracic aorta is wit hin normal limits. Coronary artery calcification noted. OTHER: OSSEOUS: There is a prominent compression fracture deformity of the T3 vertebral body (approximately 80 percent) with posterior displacement of posterior cortex by approximately 3 mm. Difficult to dete rmine if this was previously present as this area is difficult to see on the lateral chest x-ray of 0 01/25/2024 There is also mild height loss at superior endplate of T6. Also T10 and T11 superior endplates. The se fractures do not appear acute and appear to have been present on the lateral chest x-ray of 2023. IMPRESSION: 1. No significant lung nodules. No infiltrates nor pleural effusions. 2. Chronic compression fractures of T6, T10, and T11. More prominent 80 percent compression fracture of T3. Not able to determine if this was previously present. 3. Lung RADS Cat 1S - Negative: No nodules and definitely benign nodules. Other: Clinically Significa nt or Potentially Clinically Significant Findings (non lung cancer) Lung-RADS 1.0 CATEGORIES: Category 0 - Prior chest CT exam(s) being located for comparison. Category 1 - Annual screening in 12 months. No nodules or definitely benign nodules. Category 2 - Annual screening in 12 months. Benign appearance. Nodules with low likelihood of becomin g active cancer. Category 3 - 6-month follow-up. Probably benign. Short-term follow-up suggested. Nodules with low lik elihood of becoming active cancer. Category 4A - 3-month follow-up and CT/PET if >8 mm in size. Suspicious finding. Findings which requi re additional testing. Category 4B - Findings which require additional testing and tissue sampling. Category 4X - Category 3 or 4 nodules with additional features or imaging findings that increases the suspicion of malignancy. Modifier S- Potentially clinically significant findings (non lung cancer) RADIATION DOSE DELIVERED: 20.86mGy.cm Total DLP DATA REPOSITORY: All CT scans at this facility are submitted to the National Radiology Data Registry (NRDR) Dose Index Registry (DIR) with the [employer] ([employer]). RADIATION OPTIMIZATION: All CT scans at this facility use at least one of these dose optimization te chniques: automated exposure control; mA and/or kV adjustment per patient size (includes targeted exa ms where dose is matched to clinical indication); or iterative reconstruction.
== END 2024-07-24 01:46 ==
LOC: DI 01:26
PROVIDERS: PCP Family Medicine; Visit Provider Family Medicine
DX: F17.210 Nicotine dependence, cigarettes, uncomplicated (principal); Z12.2 Encounter for screening for malignant neoplasm of respiratory organs; S22.080A Wedge compression fracture of T11-T12 vertebra, initial encounter for closed fracture; X58.XXXA Exposure to other specified factors, initial encounter
CPT/HCPCS: 71271

== ENCOUNTER 2024-12-17 15:41 | Emergency (ER) | payer MEDICARE, SELFPAY ==
[2024-12-17 15:43] VITALS: BP 150/88; PULSE 70; RESP 15; TEMP 36.4; O2SAT 99
--- NOTE | 2024-12-17 16:00 | DI.RAD_ITS ---
Exam(s) XR CHEST 2V PA LATERAL EXAM: XR CHEST 2V PA LATERAL CLINICAL HISTORY: back pain, copd, cough TECHNIQUE: 2D digital imaging was performed. Two views. COMPARISON: CT CT CHEST LUNG CANCER SCREEN from 07/24/2024 FINDINGS: HEART: Normal size. Aorta: Not dilated. PULMONARY VASCULATURE: Normal. MEDIASTINUM: Unremarkable. LUNGS: Hyperinflated but clear. PLEURAL SPACE: No pleural effusion or pneumothorax. BONE:Stable compression fractures. SOFT TISSUES: Unremarkable. IMPRESSION: No acute abnormality. DATA REPOSITORY: RADIATION DOSE DELIVERED:
[2024-12-17 16:48] VITALS: BP 143/72; PULSE 72; RESP 16; TEMP 36.4; O2SAT 99
--- NOTE | 2024-12-17 16:51 | ED.GENADUL_ITS ---
Discharge Plan Disposition Patient Disposition: Home Condition: Stable Discharge Details Clinical Impression: Bronchitis, Musculoskeletal back pain Primary Care Provider: Terrence Che ED Provider: Nilsa Starks Home Meds and New Rx's Prescriptions: New prednisone 20 mg tablet 40 mg PO DAILY Qty: 10 0RF methocarbamol 750 mg tablet 750 mg PO TID Qty: 15 0RF Continued metoprolol succinate 50 mg Tablet Extended Release 24 Hr 50 mg PO BID teriparatide 20 mcg/dose (600mcg/2.4mL) pen injector 20 mcg SUBCUT DAILY lisinopril 40 MG tablet 40 mg PO DAILY atorvastatin 20 mg tablet 1 tab PO DAILY Patient Comments: TAKE ONE TABLET BY MOUTH EVERY DAY albuterol sulfate 2.5 mg /3 mL (0.083 %) solution for nebulization 2.5 ml inhalation Q3H PRN Patient Comments: INHALE CONTENTS OF 1 VIAL IN NEBULIZER EVERY 3 HOURS levothyroxine 75 mcg tablet 1 tab PO DAILY Patient Comments: TAKE ONE TABLET BY MOUTH EVERY DAY budesonide-formoterol 160-4.5 mcg/actuation HFA aerosol inhaler 2 puff inhalation BID Patient Comments: INHALE TWO PUFFS BY MOUTH TWICE A DAY DIRECTED Discharge Instructions Instructions: Upper Back Pain (DC), Bronchitis, Adult ED Additional Instructions: Take the prednisone as prescribed Take the methocarbamol for musculoskeletal pain, you may also apply a topical pain reliever Ibuprofen and Tylenol as needed for pain Please follow-up with primary care physician in 1 to 2 days for reassessment and return earlier should you have new or worsening complaints or pain persisting greater than 5 days Referrals: Terrence Che [Primary Care Provider] - 1 week HPI General Date/Time Provider Initiated Documentation: 12/17/24 15:43 . HPI Narrative: The patient is a 54-year-old female who presents with upper back pain. She has been experiencing upper back and neck pain for approximately 4 days, following an illness characterized by a cough. The pain is predominantly secondary to muscle spasms in her neck. She reports mild shortness of breath but does not have any fever or chills. She also does not have any chest pain, calf pain, or swelling. She has a history of COPD and has been adhering to her prescribed medication regimen. Related Data Home Medications ?Medication ?Instructions ?Recorded ?Confirmed lisinopril 40 mg tablet 40 mg PO DAILY 01/31/18 12/17/24 metoprolol succinate 50 mg 50 mg PO BID 09/27/19 12/17/24 tablet,extended release 24 hr albuterol sulfate 2.5 mg/3 mL 2.5 ml inhalation Q3H PRN 04/06/22 12/17/24 (0.083 %) solution for nebulization atorvastatin 20 mg tablet 1 tab PO DAILY 04/06/22 12/17/24 budesonide-formoterol HFA 160 2 puff inhalation BID 04/06/22 12/17/24 mcg-4.5 mcg/actuation aerosol inhaler levothyroxine 75 mcg tablet 1 tab PO DAILY 04/06/22 12/17/24 methocarbamol 750 mg tablet 750 mg PO TID #15 tabs 12/17/24 prednisone 20 mg tablet 40 mg (2 x 20 mg) PO DAILY #10 tabs 12/17/24 teriparatide 20 mcg/dose (600 20 mcg subcut DAILY 12/17/24 12/17/24 mcg/2.4 mL) subcutaneous pen injector Previous Rx's ?Medication ?Instructions ?Recorded methocarbamol 750 mg tablet 750 mg PO TID #15 tabs 12/17/24 prednisone 20 mg tablet 40 mg (2 x 20 mg) PO DAILY #10 tabs 12/17/24 Allergies Allergy/AdvReac Type Severity Reaction Status Date / Time erythromycin base Allergy Intermediate Skin Rash Verified 12/17/24 15:47 General Stated Complaint: Nk/Back Pain BARTOLOME: 4 Exam Narrative Exam Narrative: General Appearance: Patient is alert and oriented, not in acute distress. Vital signs: Within normal limits. HEENT: Within normal limits. Respiratory: Wheezes are present in the lungs, but no respiratory distress is observed. Patient is coughing. Cardiovascular: Cardiac rate and rhythm are regular without murmur. Back, Musculoskeletal: There is reproducible tenderness in the trapezius region. Extremities: Distal pulses are intact in all four extremities. Skin: Warm and dry, no rash. Neurological: Normal. Course Vital Signs Vital signs: Vital Signs Temperature 36.4 C L 12/17/24 15:43 Pulse 70 12/17/24 15:43 Respiratory Rate 15 12/17/24 15:43 Blood Pressure 150/88 H 12/17/24 15:43 Pulse Oximetry 99 12/17/24 15:43 Temperature 36.4 C 12/17/24 16:48 Pulse 72 12/17/24 16:48 Respiratory Rate 16 12/17/24 16:48 Blood Pressure 143/72 H 12/17/24 16:48 Blood Pressure Position Sitting 12/17/24 15:43 Pulse Oximetry 99 12/17/24 16:48 Oxygen Delivery Method Room Air 12/17/24 15:43 Oxygen Flow Rate 0 12/17/24 15:43 Pain Level 3 12/17/24 16:48 Medical Decision Making Imaging Chest x-ray does not show evidence of pneumonia. Initial Assessment: 54-year-old female with upper back pain, cough, and mild shortness of breath. History of COPD. No fever or chills. Predominantly muscle spasms in the neck. No chest pain or calf pain or swelling. Alert and oriented, no acute distress, wheezes in lungs without respiratory distress, reproducible tenderness in trapezius region, distal pulses intact, regular cardiac rate and rhythm without murmur. Differential Diagnosis: - Musculoskeletal pain: Suspected due to coughing and current illness. Plan: Prescribe muscle relaxant as needed, continue supportive care with steroid inhaler and rescue inhaler at home. - Bronchitis: Possible development given history of COPD and current illness. Plan: Prescribe steroids, no clear indication for antibiotics. ED Course: - Ordered chest x-ray to evaluate for pneumonia. - Chest x-ray reviewed by radiology and by me, no evidence of pneumonia. - Prescribed steroids for COPD and illness. - Prescribed muscle relaxant for musculoskeletal pain. - Reviewed return precautions with patient, patient expressed understanding. Final Assessment: Patient with upper back pain likely due to musculoskeletal issues secondary to coughing and current illness. Possible development of bronchitis given COPD history. Chest x-ray negative for pneumonia. Treatment includes steroids and muscle relaxant, with continued use of inhalers at home. Clinical Impression: - Musculoskeletal pain - Potential bronchitis Disposition: - Discharge Patient Education: Reviewed return precautions, patient expressed understanding. MDM Components Evaluation: - Number of Differential Diagnoses or Management Options: Musculoskeletal pain, Bronchitis - Amount and Complexity of Data Reviewed: Chest x-ray reviewed by radiology and by me - Risk of Complication and Morbidity or Mortality: Low suspicion for cardiac etiology, managed with supportive care and medications. Quality:[facility] Health Related Social Needs: No Data to Display PFSH All Active Problems (Updated 12/17/24 @ 16:34 by MILKA Garnica) Musculoskeletal back pain (Acute) Bronchitis (Acute) Medical History Hx of falling Osteopenia Venous stasis ulcer Tobacco user Tinea corporis Stasis dermatitis Seasonal allergic rhinitis Right knee pain Right hemiparesis utilizes a walker to ambulate Right foot drop Pharyngeal candidiasis PVD (peripheral vascular disease) Pain, joint, shoulder, right Osteoporosis Osteoarthritis Hypothyroidism Hypo-osmolality and hyponatremia Essential hypertension Eczema Congenital arteriovenous malformation Closed intertrochanteric fracture of femur COPD (chronic obstructive pulmonary disease) Cerebral arteriovenous malformation Acute ankle pain Acrocyanosis Surgical History History of hip replacement Hx of biopsy Social History Smoking/Tobacco Use Status: Current every day Tobacco Type: cigarettes Years smoked: 40 Smoking risk assessment performed?: Yes Alcohol Intake: current Alcohol Intake frequency: 0-2 drinks per day Alcohol type: beer Drug use: Occasionally Substance use type: marijuana Details: edibles at night to help sleep Housing: house Do you feel safe at home: Yes Do you feel safe in your relationship?: Yes PAWSS Have you Been Recently Intoxicated or Drunk Within the Last 30 days?: No Have you Ever Experienced Previous Episodes of Alcohol Withdrawal?: No Have you ever Experienced Withdrawal Seizures?: No Have you ever Experienced Delirium Tremens(DT)s?: No Have you ever undergone Alcohol Rehabilitation Treatment (i.e, inpt ot outpatient treatment programs)?: No Have you ever Experienced Blackouts?: No Have you ever Combined Alcohol with other Downers within the last 90 days?: No Have you ever Combined Alcohol with any other Substance of Abuse during the last 90 days?: No Positive Blood Alcohol level on Presentation? [PCS.BAL]: No Evidence of Increased Autonomic Activity (i.e. HR>120, tremor, sweating, agitation, nausea)?: No Result: 0
== END 2024-12-17 16:48 | disposition home or self-care (01) ==
PROVIDERS: Emergency Provider Physician Assistant; PCP Family Medicine
DX: J40 Bronchitis, not specified as acute or chronic (principal); M54.9 Dorsalgia, unspecified; F17.210 Nicotine dependence, cigarettes, uncomplicated; R06.02 Shortness of breath; Z87.09 Personal history of other diseases of the respiratory system
CPT/HCPCS: 99283; 71046

== ENCOUNTER 2025-02-04 02:10 | Outpatient (CLI) | payer MEDICARE, SELFPAY ==
--- NOTE | 2025-02-04 07:45 | DI.RAD_ITS ---
Exam(s) XR FOOT RT COMPLETE EXAM: XR FOOT RT COMPLETE CLINICAL HISTORY: Right foot pain,m79.671. TECHNIQUE: 2D digital imaging was performed of the right foot. Three images were obtained. AP, obl ique and lateral views were obtained. COMPARISON: No exams were available for comparison FINDINGS: BONES: On the AP view, there is a question of a longitudinal lucency through the medial aspect of the base of the proximal phalanx of the 5th toe. Fracture versus artifact. Please correlate with the p atient's site of pain. No bony destructive lesion is seen. The bones are osteopenic. There is an ol d healed 2nd metatarsal fracture. JOINTS: No dislocation present. There is an ankle joint effusion. There are hammertoe deformities of the 2nd through 4th toes. SOFT TISSUE: Normal. IMPRESSION: 1. On the AP view of the foot there is a question of a lucency through the medial aspect of the base of the proximal phalanx of the 5th toe. Fracture versus artifact. Please correlate with the patient 's site of pain. 2. Ankle joint effusion. DATA REPOSITORY: RADIATION DOSE DELIVERED:
--- NOTE | 2025-02-04 15:21 | DI.RAD_ITS ---
Exam(s) XR ANKLE RT COMPLETE EXAM: XR ANKLE RT COMPLETE CLINICAL HISTORY: pain in ankle, rt ankle sprain, S93.401A. TECHNIQUE: 2D digital imaging was performed. COMPARISON: CR XR FOOT RT COMPLETE from 02/04/2025 FINDINGS: 3 views There is generalized osteopenia in the bones of the ankle and foot. There is no evidence of fracture or widening of the ankle mortise. Talar dome unremarkable. There are no degenerative changes in th e tibial talar and subtalar joints. There is, however, a noncalcified soft tissue density anterior t o the tibiotalar joint which may represent joint effusion or soft tissue mass, this measuring 11 x 15 mm. Posteriorly there is a corticated superior pointing bony excrescence off the posterior superior aspec t of the calcaneus, measuring 6 mm craniocaudal by 8 mm AP. This has the appearance of a pump hump which is often associated with Jeanette's syndrome. However, there does not appear to be obvious th ickening of the Achilles tendon at the insertional level. There is no inferior calcaneal spur. IMPRESSION: Generalized osteopenia. No fractures of the ankle. Other findings as above. DATA REPOSITORY: RADIATION DOSE DELIVERED:
== END 2025-02-04 02:30 ==
LOC: DI 02:10
PROVIDERS: PCP Family Medicine; Visit Provider Podiatrist
DX: M19.071 Primary osteoarthritis, right ankle and foot (principal); M79.671 Pain in right foot; S93.401A Sprain of unspecified ligament of right ankle, initial encounter; X58.XXXA Exposure to other specified factors, initial encounter; I73.89 Other specified peripheral vascular diseases; M81.0 Age-related osteoporosis without current pathological fracture; S92.514A Nondisplaced fracture of proximal phalanx of right lesser toe(s), initial encounter for closed fracture
CPT/HCPCS: 99213; 73610; 73630

== ENCOUNTER 2025-02-23 01:55 | Outpatient (CLI) | payer MEDICARE, SELFPAY ==
--- NOTE | 2025-02-23 07:15 | DI.RAD_ITS ---
Exam(s) XR TOE RT FIFTH EXAM: XR TOE RT FIFTH CLINICAL HISTORY: ? HEALING,NONDISPLACED FX PROX PHALANX,s92.514A. TECHNIQUE: 2D digital imaging was performed. COMPARISON: CR XR FOOT RT COMPLETE from 02/04/2025 FINDINGS: BONES: The lucency previously seen in the proximal aspect of the proximal phalanx of the 5th toe is not visualized on the current examination. No callus formation is seen to suggest a healing fracture . The bones are osteopenic. No bony destructive lesion is seen. JOINTS: No dislocation present. SOFT TISSUE: Normal. IMPRESSION: No evidence of an acute or healing fracture. DATA REPOSITORY: RADIATION DOSE DELIVERED:
== END 2025-02-23 02:15 ==
LOC: DI 01:55
PROVIDERS: PCP Family Medicine; Visit Provider Podiatrist
DX: S92.514D Nondisplaced fracture of proximal phalanx of right lesser toe(s), subsequent encounter for fracture with routine healing (principal); X58.XXXD Exposure to other specified factors, subsequent encounter; S93.401A Sprain of unspecified ligament of right ankle, initial encounter; I73.89 Other specified peripheral vascular diseases; M81.0 Age-related osteoporosis without current pathological fracture
CPT/HCPCS: 99213; 73660